=== PATIENT | male | born 1970 | race Caucasian/White ===

== ENCOUNTER 2017-04-20 21:30 | Emergency (ER) | payer OTHER ==
[2017-04-20 21:36] VITALS: BP 157/88; PULSE 86; RESP 20; TEMP 98.2
[2017-04-20] MEDS ORDERED: PROPARACAINE 0.5% OPHTH DROPS 15 ML BTL BOTH EYES STA (21:38)
--- NOTE | 2017-04-20 21:52 | ED ---
General Adult HPI - General Chief complaint: Eye Problems Stated complaint: dirt in eyes Time Seen by Provider: 04/20/17 21:36 Source: patient, RN notes reviewed Mode of arrival: ambulatory Limitations: no limitations - History of Present Illness Initial comments: 46-year-old male presents emergency department with a chief complaint of bilateral eye irritation. Patient states that this started earlier today after he was outside working in the yard. Patient states he had a lot of irritation to eyes with no improvement. Patient states that he just is not feeling much better. Patient denies any changes in vision. Patient denies it feeling of anything in the eye.Patient denies any recent fever, chills, shortness of breath , chest pain, back pain, abdominal pain, nausea vomiting, numbness or tingling, dysuria or hematuria, constipation or diarrhea, headaches or visual changes, or any other current symptoms. - Related Data Home Medications Medication Instructions Recorded Confirmed No Known Home Medications [No 04/20/17 04/20/17 Known Home Medications] Allergies Allergy/AdvReac Type Severity Reaction Status Date / Time No Known Allergies Allergy Verified 04/20/17 21:34 Review of Systems ROS Statement: Those systems with pertinent positive or pertinent negative responses have been documented in the HPI. ROS Other: All systems not noted in ROS Statement are negative. Past Medical History Past Medical History: No Reported History History of Any Multi-Drug Resistant Organisms: None Reported Past Surgical History: No Surgical Hx Reported Past Psychological History: No Psychological Hx Reported Smoking Status: Never smoker Past Alcohol Use History: None Reported Past Drug Use History: None Reported General Exam Limitations: no limitations General appearance: alert, in no apparent distress Head exam: Present: atraumatic, normocephalic, normal inspection Eye exam: Present: normal appearance, PERRL, EOMI. Absent: scleral icterus, conjunctival injection, periorbital swelling Pupils: Present: normal accommodation Expanded Eyelids: Normal Inspection: Bilateral Pupils: Regular, Round: Bilateral Sclera/Conjunctival: Normal Inspection: Bilateral (Sales lamp examination does not show any injury) ENT exam: Present: normal exam, mucous membranes moist Neck exam: Present: normal inspection. Absent: tenderness, meningismus, lymphadenopathy Respiratory exam: Present: normal lung sounds bilaterally. Absent: respiratory distress, wheezes, rales, rhonchi, stridor Cardiovascular Exam: Present: regular rate, normal rhythm, normal heart sounds. Absent: systolic murmur, diastolic murmur, rubs, gallop, clicks Neurological exam: Present: alert, oriented X3 Psychiatric exam: Present: normal affect, normal mood Skin exam: Present: warm, dry, intact, normal color. Absent: rash Course Vital Signs 04/20/17 21:34 Temperature 98.2 F Pulse Rate 86 Respiratory 20 Rate Blood Pressure 157/88 O2 Sat by Pulse 98 Oximetry Medical Decision Making - Medical Decision Making 46 yo male presents to the emergency department with a chief complaint of irritation to bilateral eyes. sales lamp examination show no acute process. patient underwent irrigation with morgans lens. Patient states feeling better. we discussed home care and follow up. all questions have been answered. patient in agreement with plan. patient will be discharged at this time. Disposition Clinical Impression: Irritation of both eyes Disposition: HOME SELF-CARE Condition: Stable Instructions: Eye Wash (Into the eye) Additional Instructions: If symptoms worsen or changed please return to the ER. Follow up with your PCP in 1-2 days for re-eval. Any changes in vision return immediately. Referrals: Estephanie Fry MD [STAFF PHYSICIAN] - 1-2 days Time of Disposition: 22:37
== END 2017-04-20 22:45 | disposition home or self-care (01) ==
LOC: EC 21:30
DX: H57.8 Other specified disorders of eye and adnexa (principal)
CPT/HCPCS: 99283

== ENCOUNTER 2019-10-08 15:11 | Emergency (ER) | payer OTHER ==
[2019-10-08 15:21] VITALS: BP 149/83; PULSE 67; RESP 16; TEMP 99.9
[2019-10-08] MEDS ORDERED: ACETAMINOPHEN TAB 325 MG TAB PO STA (15:51)
--- NOTE | 2019-10-08 16:08 | XR ---
EXAMINATION TYPE: XR chest 2V DATE OF EXAM: 10/08/2019 COMPARISON: NONE HISTORY: Fever and cough TECHNIQUE: Frontal and lateral views of the chest are obtained. FINDINGS: There is no focal air space opacity, pleural effusion, or pneumothorax seen. The cardiac silhouette size is within normal limits. The osseous structures are intact. IMPRESSION: No acute cardiopulmonary process.
--- NOTE | 2019-10-08 16:31 | ED ---
URI HPI - General Chief Complaint: Upper Respiratory Infection Stated Complaint: Flu symptoms Time Seen by Provider: 10/08/19 15:31 Source: patient Mode of arrival: ambulatory Limitations: no limitations - History of Present Illness Initial Comments: 49-year-old female presenting today for chief complaint of cough for sore throat fever or chills body aches. Patient states that he has had cough chills body aches and felt as though he is a fever since yesterday. Patient states he is coming down with the flu. Patient states he did have his influenza vaccine. Patient denies vomiting diarrhea area patient denies chest pain shortness of breath. Denies headache or photophobia. Patient was concerned possibly had pneumonia. Patient states he coughed so hard on his low back hurts. Patient denies any loss of bowel bladder control urinary retention decrease in strength or range of motion of the lower extremities, history of disc herniation, loss of sensation of the LE, IVDU, cancer history. Patient states it was only present after coughing hard. Patient has no other complaints. Upon arrival patient appears well nontoxic with obvious URI symptoms. - Related Data Previous Rx's Medication Instructions Recorded Oseltamivir [Tamiflu] 75 mg PO Q12HR 5 Days #10 cap 10/08/19 Allergies Allergy/AdvReac Type Severity Reaction Status Date / Time No Known Allergies Allergy Verified 10/08/19 15:20 Review of Systems ROS Statement: Those systems with pertinent positive or pertinent negative responses have been documented in the HPI. ROS Other: All systems not noted in ROS Statement are negative. Past Medical History Past Medical History: Hypertension History of Any Multi-Drug Resistant Organisms: None Reported Past Surgical History: No Surgical Hx Reported Past Psychological History: No Psychological Hx Reported Smoking Status: Never smoker Past Alcohol Use History: None Reported Past Drug Use History: None Reported General Exam - General Exam Comments Initial Comments: General: The patient is awake and alert, in no distress, and does not appear acutely ill. Eye: +3 mm pupils are equal, round and reactive to light, extra-ocular movements are intact. No nystagmus. There is normal conjunctiva bilaterally. No signs of icterus. No photophobia Ears, nose, mouth and throat: There are moist mucous membranes and no oral lesions. Oropharynx was not erythematous there is no tonsillar enlargement exudates or lesions. Uvula midline. Tympanic membranes are not erythematous or is no effusions bulging or retraction. No tenderness to palpation of the mastoid. No anterior cervical lymphadenopathy. Rhinorrhea, clear and bilateral nares. No tripoding, no drooling. Neck: The neck is supple, there is no tenderness or JVD. No nuchal rigidity Cardiovascular: There is a regular rate and rhythm. No murmur, rub or gallop is appreciated. Respiratory: Lungs are clear to auscultation, respirations are non-labored, breath sounds are equal. No wheezes, stridor, rales, or rhonchi. No retractions or abdominal breathing. Gastrointestinal: Soft, non-distended, non-tender abdomen without masses or organomegaly noted. There is no rebound or guarding present. Bowel sounds are unremarkable. Musculoskeletal: Normal inspection the cervical thoracic and lumbar spine no midline tenderness to patient of the vertebrae of the back some paravertebral lumbar tenderness noted. Normal ROM, no tenderness. Strength 5/5 of the lower extremities equal and comparison bilaterally. Sensation intact of the lower extremities equal comparison bilaterally. Radial pulses equal bilaterally 2+. Neurological: A&O x 3. CN II-XII intact grossly, There are no obvious motor or sensory deficits. Coordination appears grossly intact. Speech appears normal, no muffling. Skin: Skin is warm and dry and no rashes or lesions are noted. No extremity edema Psychiatric: Cooperative Limitations: no limitations Course Vital Signs 10/08/19 15:18 Temperature 99.9 F H Pulse Rate 67 Respiratory 16 Rate Blood Pressure 149/83 O2 Sat by Pulse 95 Oximetry Medical Decision Making - Medical Decision Making 49-year-old male presenting today for chief complaint of cough congestion flulike symptoms. Patient positive for influenza A. Lung clear, no respiratory distress> CXR clear. Patient also complaining of low back pain has paraspinal tenderness this is most likely from coughing, I feel this is most likely musculoskeletal as does my attending provider who I discussed case with. This time given patient's symptoms are less than 40 hours I feel he may be discharged with antiemetic treatment strict return parameters it and cautious primary care follow-up within 24-40 hours as well as the use of Tamiflu and Tylenol/ibuprofen for fever management. Patient is agreeable to care plan and discharge. Attending providers agreeable care plan and discharge at this time. - Lab Data Lab Results 02/14/20 Range/Units 16:00 Influenza Type A RNA Detected H (Not Detectd) Influenza Type B (PCR) Not Detected (Not Detectd) Disposition Clinical Impression: Influenza A, Cough, Low back pain Disposition: HOME SELF-CARE Condition: Good Additional Instructions: Please use medication as discussed. Please follow-up with family doctor in the next 2 days. Please return to emergency room if the symptoms increase or worsen or for any other concerns. Prescriptions: Oseltamivir [Tamiflu] 75 mg PO Q12HR 5 Days #10 cap Is patient prescribed a controlled substance at d/c from ED?: No Referrals: Jodi Ritchie DO [Primary Care Provider] - 1-2 days Time of Disposition: 16:31
== END 2019-10-08 16:55 | disposition home or self-care (01) ==
LOC: EC 15:11
DX: J10.1 Influenza due to other identified influenza virus with other respiratory manifestations (principal); M54.5 Low back pain; I10 Essential (primary) hypertension
CPT/HCPCS: 71046; 87502; 99283

== ENCOUNTER 2020-03-27 17:48 | Emergency (ER) | payer OTHER ==
[2020-03-27 17:58] VITALS: PULSE 65; TEMP 98.6
[2020-03-27] MEDS ORDERED: ONDANSETRON 4 MG ODT STARTER PACK 2 TAB BTL PO STA (18:31)
[2020-03-27] MEDS ORDERED: ONDANSETRON ODT 4 MG TAB PO STA (18:31)
[2020-03-27] MEDS ORDERED: MECLIZINE 12.5 MG TAB PO STA (18:31)
--- NOTE | 2020-03-27 18:32 | ED ---
Dizziness HPI - General Chief Complaint: Dizziness Stated Complaint: High Blood Pressure Time Seen by Provider: 03/27/20 18:02 Source: patient, RN notes reviewed, old records reviewed Mode of arrival: ambulatory Limitations: no limitations - History of Present Illness Initial Comments: This 49-year-old male DF for evaluation of dizziness lightheadedness room spinning. Has had this issue before prior history of vertigo no prior medications taken. Patient denies drugs or alcohol today. Symptoms began at work he states progressively felt worse patient's main concern is blood pressure may be causing his dizzy spells that he is having. No chest pain shortness breath or headache MD Complaint: dizziness -: hour(s) Timing: gradual onset, intermittent Description: lightheadedness History of Same: Yes History of Trauma: No Severity: mild Improves With: remaining still Worsens With: movement Associated Symptoms: denies other symptoms - Related Data Home Medications Medication Instructions Recorded Confirmed lisinopriL [Prinivil] 5 mg PO DAILY 10/16/19 10/16/19 Previous Rx's Medication Instructions Recorded Amoxicillin/Potassium Clav 1 tab PO Q12HR 7 Days #14 tab 10/16/19 [Augmentin 875-125 Tablet] Meclizine [Antivert] 25 mg PO TID #15 tab 03/27/20 Allergies Allergy/AdvReac Type Severity Reaction Status Date / Time Milk Containing Products AdvReac Confusion Verified 03/27/20 17:57 [Dairy] Review of Systems ROS Statement: Those systems with pertinent positive or pertinent negative responses have been documented in the HPI. ROS Other: All systems not noted in ROS Statement are negative. Past Medical History Past Medical History: Hypertension History of Any Multi-Drug Resistant Organisms: None Reported Past Surgical History: No Surgical Hx Reported Past Psychological History: No Psychological Hx Reported Past Alcohol Use History: None Reported Past Drug Use History: None Reported General Exam Limitations: no limitations General appearance: alert, in no apparent distress Head exam: Present: atraumatic, normocephalic, normal inspection Eye exam: Present: normal appearance, PERRL, EOMI. Absent: scleral icterus, conjunctival injection, periorbital swelling ENT exam: Present: normal exam, mucous membranes moist Neck exam: Present: normal inspection. Absent: tenderness, meningismus, lymphadenopathy Respiratory exam: Present: normal lung sounds bilaterally. Absent: respiratory distress, wheezes, rales, rhonchi, stridor Cardiovascular Exam: Present: regular rate, normal rhythm, normal heart sounds. Absent: systolic murmur, diastolic murmur, rubs, gallop, clicks GI/Abdominal exam: Present: soft, normal bowel sounds. Absent: distended, tenderness, guarding, rebound, rigid Extremities exam: Present: normal inspection, full ROM, normal capillary refill. Absent: tenderness, pedal edema, joint swelling, calf tenderness Back exam: Present: normal inspection Neurological exam: Present: alert, oriented X3, CN II-XII intact Psychiatric exam: Present: normal affect, normal mood Skin exam: Present: warm, dry, intact, normal color. Absent: rash Course Vital Signs 03/27/20 03/27/20 17:55 19:11 Temperature 98.6 F Pulse Rate 65 65 Respiratory 20 14 Rate Blood Pressure 145/83 135/78 O2 Sat by Pulse 100 98 Oximetry - Reevaluation(s) Reevaluation #1: medical record is reviewed patient symptoms siginficantly improved informed patient of results, questions answered and ok for discharge, Medical Decision Making - Medical Decision Making 49 male with symptoms of vertigo. Patient relatively asymptomatic currently. Discharged home without further evaluation, able to ambulate without difficulty or ataxia - Radiology Data Radiology results: report reviewed (CT brain negative for aucte dz), image reviewed Disposition Clinical Impression: Vertigo Disposition: HOME SELF-CARE Condition: Good Instructions (If sedation given, give patient instructions): Vertigo (ED) Prescriptions: Meclizine [Antivert] 25 mg PO TID #15 tab Is patient prescribed a controlled substance at d/c from ED?: No Referrals: Jodi Ritchie DO [Primary Care Provider] - 1-2 days
--- NOTE | 2020-03-27 18:55 | CT ---
EXAMINATION TYPE: CT brain wo con DATE OF EXAM: 03/27/2020 COMPARISON: None HISTORY: Dizziness, headache, elevated BP. CT DLP: 1111.4 mGycm Automated exposure control for dose reduction was used. Ventricles have normal size. There is no mass effect nor midline shift. There is no sign of intracran ial hemorrhage. Calvarium appears normal. Mastoid sinuses appear normal. Skull base is intact. There is no evidence of cerebral edema. IMPRESSION: Normal unenhanced head CT scan.
[2020-03-27 19:13] VITALS: BP 135/78; RESP 14
== END 2020-03-27 19:11 | disposition home or self-care (01) ==
LOC: EC 17:48
DX: R42 Dizziness and giddiness (principal); I10 Essential (primary) hypertension; Z79.899 Other long term (current) drug therapy; Z91.011 Allergy to milk products
CPT/HCPCS: 70450; 99284; S0119

== ENCOUNTER 2023-02-18 16:25 | Emergency (ER) | payer BC, OTHER ==
[2023-02-18 16:31] VITALS: RESP 16
--- NOTE | 2023-02-18 17:37 | ED ---
General Adult HPI - General Source: patient, RN notes reviewed Mode of arrival: ambulatory Limitations: no limitations <Giulia Green - Last Filed: 02/18/23 17:36> <Jaqueline Victoria - Last Filed: 02/18/23 23:49> - General Chief complaint: Headache Stated complaint: Fever,chills,headache Time Seen by Provider: 02/18/23 17:36 - History of Present Illness Initial comments: 52-year-old male with no significant past medical history presents emergency department with a chief complaint of headache, fever, chills. Patient reports also chronic left knee pain. denies any injury or trauma (Giulia Green) Patient is a 52-year-old male presents to the emergency department for upper respiratory symptoms. Patient reports fever, chills, dry cough which started today. He also reports migraine. States he has history and this feels similar. He denies numbness and tingling, weakness. Denies chest pain and shortness of breath. (Jaqueline Victoria) - Related Data Home Medications Medication Instructions Recorded Confirmed lisinopriL [Prinivil] 5 mg PO DAILY 10/16/19 10/16/19 Previous Rx's Medication Instructions Recorded Amoxicillin/Potassium Clav 1 tab PO Q12HR 7 Days #14 tab 10/16/19 [Augmentin 875-125 Tablet] Meclizine [Antivert] 25 mg PO TID #15 tab 03/27/20 Ibuprofen [Motrin] 800 mg PO Q8HR PRN #30 tab 02/18/23 Lidocaine 5% Patch [Lidoderm 5% 1 patch TOPICAL DAILY PRN #7 patch 02/18/23 Patch] Allergies Allergy/AdvReac Type Severity Reaction Status Date / Time Milk Containing Products AdvReac Confusion Verified 03/27/20 17:57 [Dairy] Review of Systems ROS Other: All systems not noted in ROS Statement are negative. <Giulia Green - Last Filed: 02/18/23 17:36> ROS Other: All systems not noted in ROS Statement are negative. <Jaqueline Victoria - Last Filed: 02/18/23 23:49> ROS Statement: Those systems with pertinent positive or pertinent negative responses have been documented in the HPI. Past Medical History Past Medical History: Hypertension History of Any Multi-Drug Resistant Organisms: None Reported Past Surgical History: No Surgical Hx Reported Past Psychological History: No Psychological Hx Reported Past Alcohol Use History: None Reported Past Drug Use History: None Reported <YojanaGiulia abhena - Last Filed: 02/18/23 17:36> General Exam Limitations: no limitations <Giulia Green - Last Filed: 02/18/23 17:36> General appearance: alert, in no apparent distress Head exam: Present: atraumatic, normocephalic, normal inspection Respiratory exam: Present: normal lung sounds bilaterally. Absent: respiratory distress, wheezes, rales, rhonchi, stridor Cardiovascular Exam: Present: regular rate, normal rhythm, normal heart sounds. Absent: systolic murmur, diastolic murmur, rubs, gallop, clicks Neurological exam: Present: alert, oriented X3, CN II-XII intact Expanded Cranial nerves: Facial Sensation: Normal, Facial Palsy with Forehead Movement: Normal, Facial Palsy without Forehead Movement: Normal Cerebellar function: Finger to Nose: Normal, Heel to [place]: Normal Sensory exam: Upper Extremity Light Touch: Normal, Lower Extremity Light Touch: Normal Motor strength exam: RUE: 5, LUE: 5, RLE: 5, LLE: 5 Psychiatric exam: Present: normal affect, normal mood Skin exam: Present: warm, dry, intact, normal color. Absent: rash <EsmeJaqueline - Last Filed: 02/18/23 23:49> - General Exam Comments Initial Comments: Visual Physical Exam Vital signs reviewed General: Well-appearing, nontoxic, no acute distress. Head: Normocephalic, atraumatic Eyes: PERRLA, EOMI ENT: Airway patent Chest: Nonlabored breathing Skin: No visual rash, normal skin tone Neuro: Alert and oriented 3 Musculoskeletal: No gross abnormalities (Giulia Green) Course Vital Signs 02/18/23 02/18/23 16:27 20:30 Temperature 99.9 F H 99.3 F Pulse Rate 72 68 Respiratory 16 16 Rate Blood Pressure 165/87 153/73 O2 Sat by Pulse 98 97 Oximetry Medical Decision Making <EsmeJaqueline - Last Filed: 02/18/23 23:49> - Medical Decision Making Was pt. sent in by a medical professional or institution (, PA, [employer]AD, urgent care, hospital, or group home...) When possible be specific @ -No Did you speak to anyone other than the patient for history (EMS, parent, family, police, friend...)? What history was obtained from this source @ -No Did you review nursing and triage notes (agree or disagree)? Why? @ -I reviewed and agree with nursing and triage notes Were old charts reviewed (outside hosp., previous admission, EMS record, old EKG, old radiological studies, urgent care reports/EKG's, group home records)? Report findings @ -No old charts were reviewed Differential Diagnosis (chest pain, altered mental status, abdominal pain women, abdominal pain men, vaginal bleeding, weakness, fever, dyspnea, syncope, headache, dizziness, GI bleed, back pain, seizure, CVA, palpatations, mental health)? @ -Differential Headache: Migraine, tension, cluster, carbon monoxide, central venous thrombosis, pension karma temporal arteritis, acute closure glaucoma, intercranial hemorrhage, mastoiditis, sinusitis, head injury, this is not meant to be an all-inclusive list. EKG interpreted by me (3pts min.). @ -None X-rays interpreted by me (1pt min.). @ -None done CT interpreted by me (1pt min.). @ -None done U/S interpreted by me (1pt. min.). @ -None done What testing was considered but not performed or refused? (CT, X-rays, U/S, labs)? Why? @ -None What meds were considered but not given or refused? Why? @ -None Did you discuss the management of the patient with other professionals (professionals i.e. , PA, [employer], lab, RT, psych nurse, social services manager, sales audit clerk, teacher, court officer, block and case maker)? Give summary @ -No Was smoking cessation discussed for >3mins.? @ -No Was critical care preformed (if so, how long)? @ -No Were there social determinants of health that impacted care today? How? (Homelessness, low income, unemployed, alcoholism, drug addiction, transportation, low edu. Level, literacy, decrease access to med. care, retirement, rehab)? @ -No Was there de-escalation of care discussed even if they declined (Discuss DNR or withdrawal of care, Hospice)? DNR status @ -No What co-morbidities impacted this encounter? (DM, HTN, Smoking, COPD, CAD, Cancer, CVA, ARF, Chemo, Hep., AIDS, mental health diagnosis, sleep apnea, morbid obesity)? @ -None Was patient admitted / discharged? Hospital course, mention meds given and route, prescriptions, significant lab abnormalities, going to OR and other pertinent info. @ -Patient presenting with upper respiratory symptoms and migraine. No neurological deficit on exam. Vital testing is negative. Symptoms improved after migraine cocktail patient is discharged in stable condition Undiagnosed new problem with uncertain prognosis? @ -No Drug Therapy requiring intensive monitoring for toxicity (Heparin, Nitro, Insulin, Cardizem)? @ -No Were any procedures done? @ -No Diagnosis/symptom? @ -migraine, acute URI Acute, or Chronic, or Acute on Chronic? @ -acute Uncomplicated (without systemic symptoms) or Complicated (systemic symptoms)? @ -uncomplicated Side effects of treatment? @ -No Exacerbation, Progression, or Severe Exacerbation? @ -No Poses a threat to life or bodily function? How? (Chest pain, [place], [place], pneumonia, PE, COPD, DKA, ARF, appy, cholecystitis, CVA, Diverticulitis, Homicidal, Suicidal, threat to staff... and all critical care pts) @ -No Dr. Sarabia is my attending (Jaqueline Victoria) - Lab Data Lab Results 02/18/23 Range/Units 18:06 Influenza Type A (PCR) Not Detected (Not Detectd) Influenza Type B (PCR) Not Detected (Not Detectd) RSV (PCR) Not Detected (Not Detectd) SARS-CoV-2 (PCR) Not Detected (Not Detectd) Disposition <Giulia Green - Last Filed: 02/18/23 17:36> Is patient prescribed a controlled substance at d/c from ED?: No Time of Disposition: 20:25 <Jaqueline Victoria - Last Filed: 02/18/23 23:49> Clinical Impression: Migraine, Acute upper respiratory infection Disposition: HOME SELF-CARE Condition: Good Instructions (If sedation given, give patient instructions): Upper Respiratory Infection (ED) Additional Instructions: Take medication as directed. Please follow-up with your primary care provider in 1-2 days. Return to the emergency department if you experience new, concerning, or worsening symptoms. Prescriptions: Lidocaine 5% Patch [Lidoderm 5% Patch] 1 patch TOPICAL DAILY PRN #7 patch PRN Reason: Pain Ibuprofen [Motrin] 800 mg PO Q8HR PRN #30 tab PRN Reason: Pain Referrals: Jodi Ritchie DO [Primary Care Provider] - 1-2 days
[2023-02-18] MEDS ORDERED: diphenhydrAMINE 50 MG/ML 1 ML VIAL IVP STA (18:19)
[2023-02-18] MEDS ORDERED: KETOROLAC 15 MG/ML 1 ML VIAL IVP STA (18:19)
[2023-02-18] MEDS ORDERED: DEXAMETHASONE SOD PHOSPHATE 10 MG/ML 1 ML VIAL IVP STA (18:19)
[2023-02-18] MEDS ORDERED: SODIUM CHLORIDE 0.9% 1,000 ML IV STA (18:19)
[2023-02-18] MEDS ORDERED: ONDANSETRON 4 MG/2 ML VIAL IVP STA (18:19)
[2023-02-18] MEDS ORDERED: LIDOCAINE 5% PATCH TOPICAL STA (18:20)
[2023-02-18 20:32] VITALS: BP 153/73; PULSE 68; TEMP 99.3
== END 2023-02-18 20:34 | disposition home or self-care (01) ==
LOC: EC 16:25
DX: G43.909 Migraine, unspecified, not intractable, without status migrainosus (principal); J06.9 Acute upper respiratory infection, unspecified; I10 Essential (primary) hypertension; Z79.899 Other long term (current) drug therapy; Z91.011 Allergy to milk products; Z20.822 Contact with and (suspected) exposure to COVID-19
CPT/HCPCS: 87636; 99284; 96374; 96375 ×3; 96361; J1200; J1100; J2405; J1885

== ENCOUNTER 2023-11-05 14:08 | Emergency (ER) | payer BC ==
--- NOTE | 2023-11-05 14:59 | ED ---
General Adult HPI - General Chief complaint: ENT Stated complaint: FEVER,sore throat Time Seen by Provider: 11/05/23 14:14 Source: patient, RN notes reviewed Mode of arrival: ambulatory Limitations: no limitations - History of Present Illness Initial comments: 53-year-old male presents to the emergency department for chief complaint of sore throat, fever. He states that symptoms started yesterday. He was at work when he developed chills. He states that he noticed sore throat after this and continues to have sore throat today. He notes that he had fever earlier today as well. He admits to taking Tylenol for his fever. He denies cough. Admits to some sinus congestion. - Related Data Home Medications Medication Instructions Recorded Confirmed lisinopriL [Prinivil] 5 mg PO DAILY 10/16/19 10/16/19 Previous Rx's Medication Instructions Recorded Amoxicillin/Potassium Clav 1 tab PO Q12HR 7 Days #14 tab 10/16/19 [Augmentin 875-125 Tablet] Meclizine [Antivert] 25 mg PO TID #15 tab 03/27/20 Ibuprofen [Motrin] 800 mg PO Q8HR PRN #30 tab 02/18/23 Lidocaine 5% Patch [Lidoderm 5% 1 patch TOPICAL DAILY PRN #7 patch 02/18/23 Patch] Allergies Allergy/AdvReac Type Severity Reaction Status Date / Time Milk Containing Products AdvReac Confusion Verified 03/27/20 17:57 (Dairy) [Dairy] Review of Systems ROS Statement: Those systems with pertinent positive or pertinent negative responses have been documented in the HPI. ROS Other: All systems not noted in ROS Statement are negative. Past Medical History Past Medical History: Hypertension History of Any Multi-Drug Resistant Organisms: None Reported Past Surgical History: No Surgical Hx Reported Past Psychological History: No Psychological Hx Reported Past Alcohol Use History: None Reported Past Drug Use History: None Reported General Exam Limitations: no limitations General appearance: alert, in no apparent distress Head exam: Present: atraumatic, normocephalic, normal inspection Eye exam: Present: normal appearance, PERRL, EOMI. Absent: scleral icterus, conjunctival injection, periorbital swelling ENT exam: Present: mucous membranes moist. Absent: normal oropharynx (Erythematous oropharynx without exudate) Neck exam: Present: normal inspection. Absent: tenderness, meningismus, lymphadenopathy Respiratory exam: Present: normal lung sounds bilaterally. Absent: respiratory distress, wheezes, rales, rhonchi, stridor Cardiovascular Exam: Present: regular rate, normal rhythm, normal heart sounds. Absent: systolic murmur, diastolic murmur, rubs, gallop, clicks GI/Abdominal exam: Present: soft. Absent: distended, tenderness, guarding, rebound, rigid Extremities exam: Present: normal inspection, full ROM, normal capillary refill. Absent: tenderness, pedal edema, joint swelling, calf tenderness Back exam: Present: normal inspection Neurological exam: Present: alert, oriented X3 Psychiatric exam: Present: normal affect, normal mood Skin exam: Present: warm, dry, intact, normal color. Absent: rash Course Vital Signs 11/05/23 11/05/23 11/05/23 14:11 14:42 16:02 Temperature 98.3 F 98 F Pulse Rate 61 70 Respiratory 16 18 16 Rate Blood Pressure 146/83 135/79 O2 Sat by Pulse 98 96 Oximetry Medical Decision Making - Medical Decision Making Was pt. sent in by a medical professional or institution (, PA, CIVIL ENGINEERING MANAGER, urgent care, hospital, or snf...) When possible be specific @ -No Did you speak to anyone other than the patient for history (EMS, parent, family, police, friend...)? What history was obtained from this source @ -No Did you review nursing and triage notes (agree or disagree)? Why? @ -I reviewed and agree with nursing and triage notes Were old charts reviewed (outside hosp., previous admission, EMS record, old EKG, old radiological studies, urgent care reports/EKG's, snf records)? Report findings @ -No old charts were reviewed Differential Diagnosis (chest pain, altered mental status, abdominal pain women, abdominal pain men, vaginal bleeding, weakness, fever, dyspnea, syncope, headache, dizziness, GI bleed, back pain, seizure, CVA, palpatations, mental health, musculoskeletal)? @ -Differential Fever: Pneumonia, viral URI, endocarditis, myocarditis, pericarditis, otitis, sinusitis, peritonsillar Abscess, retropharyngeal Abscess, epiglottitis, peritonitis, appendicitis, [place] cystitis, diverticulitis, hepatitis, colitis, UTI, PID, TOA, pyelonephritis, prostatitis, epididymitis, meningitis, encephalitis, pulmonary embolism, CVA, thyroid storm, pancreatitis, adrenal crisis, cavernous sinus thrombosis, this is not meant to be an all-inclusive list. EKG interpreted by me (3pts min.). @ -None X-rays interpreted by me (1pt min.). @ -None done CT interpreted by me (1pt min.). @ -None done U/S interpreted by me (1pt. min.). @ -None done What testing was considered but not performed or refused? (CT, X-rays, U/S, labs)? Why? @ -None What meds were considered but not given or refused? Why? @ -None Did you discuss the management of the patient with other professionals (professionals i.e. , PA, CIVIL ENGINEERING MANAGER, lab, RT, psych nurse, elementary school social worker, settlement agent, teacher, community service patrol officer, immigration case worker)? Give summary @ -No Was smoking cessation discussed for >3mins.? @ -No Was critical care preformed (if so, how long)? @ -No Were there social determinants of health that impacted care today? How? (Homelessness, low income, unemployed, alcoholism, drug addiction, transportation, low edu. Level, literacy, decrease access to med. care, senior living, rehab)? @ -No Was there de-escalation of care discussed even if they declined (Discuss DNR or withdrawal of care, Hospice)? DNR status @ -No What co-morbidities impacted this encounter? (DM, HTN, Smoking, COPD, CAD, Cancer, CVA, ARF, Chemo, Hep., AIDS, mental health diagnosis, sleep apnea, morbid obesity)? @ -None Was patient admitted / discharged? Hospital course, mention meds given and route, prescriptions, significant lab abnormalities, going to OR and other pertinent info. @ -Discharge. Patient presented to the emergency department for evaluation of fever, sore throat, muscle aches x 1 day. Patient tested for COVID, influenza, RSV, strep pharyngitis which were negative. Patient afebrile in the emergency department. Discussed that this is likely a viral pharyngitis. Discussed symptomatic treatment with Tylenol, Motrin, salt water gargles. Patient understanding agreeable plan. Patient stable at time of discharge. Case discussed with Dr. Ordoñez Undiagnosed new problem with uncertain prognosis? @ -No Drug Therapy requiring intensive monitoring for toxicity (Heparin, Nitro, Insulin, Cardizem)? @ -No Were any procedures done? @ -No Diagnosis/symptom? @ -Viral pharyngitis Acute, or Chronic, or Acute on Chronic? @ -Acute Uncomplicated (without systemic symptoms) or Complicated (systemic symptoms)? @ -Uncomplicated Side effects of treatment? @ -No Exacerbation, Progression, or Severe Exacerbation? @ -No Poses a threat to life or bodily function? How? (Chest pain, [place], [place], pneumonia, PE, COPD, DKA, ARF, appy, cholecystitis, CVA, Diverticulitis, Homicidal, Suicidal, threat to staff... and all critical care pts) @ -No - Lab Data Lab Results 11/05/23 11/05/23 Range/Units 14:37 14:37 Influenza Type A (PCR) Not Detected (Not Detectd) Influenza Type B (PCR) Not Detected (Not Detectd) RSV (PCR) Not Detected (Not Detectd) SARS-CoV-2 (PCR) Not Detected (Not Detectd) Group A Strep (PCR) NOT DETECTED (Not Detectd) Disposition Clinical Impression: Acute viral pharyngitis Disposition: HOME SELF-CARE Condition: Stable Instructions (If sedation given, give patient instructions): Pharyngitis (ED) Additional Instructions: Please follow up with your primary care provider. Return to the emergency department for new or worsening symptoms. Is patient prescribed a controlled substance at d/c from ED?: No Referrals: Geeta Atkins DO [Primary Care Provider] - 1-2 days
[2023-11-05 16:23] VITALS: BP 135/79; PULSE 70; RESP 16; TEMP 98
== END 2023-11-05 16:36 | disposition home or self-care (01) ==
LOC: EC 14:08
DX: J02.9 Acute pharyngitis, unspecified (principal); Z91.011 Allergy to milk products
CPT/HCPCS: 87636; 87651; 99283

== ENCOUNTER 2024-05-12 17:55 | Emergency (ER) | payer BC ==
--- NOTE | 2024-05-12 18:41 | ED ---
Fever HPI - General Source: patient, RN notes reviewed Mode of arrival: ambulatory Limitations: no limitations <Nuha Lozano - Last Filed: 05/12/24 18:40> - General Source: patient, old records reviewed Mode of arrival: ambulatory Limitations: no limitations - History of Present Illness MD Complaint: fever, malaise -: days(s) Temperature Source: subjective Context: sick contacts, multiple patients with similar symptoms Associated Symptoms: chills, rigors, cough, chest pain Treatments Prior to Arrival: none <Brodie Ordoñez - Last Filed: 05/24/24 16:01> - General Chief Complaint: Fever Stated Complaint: fever,lower back pain/congestion Time Seen by Provider: 05/12/24 18:40 - History of Present Illness Initial Comments: Quick note: 54-year-old male presented to ER with a chief complaint of cough and fever. Patient states today he started to experience chills, dry throat, coughing up phlegm and lower back pain. Denies any chest pain or shortness of breath. (Nuha Lozano) This is a 54-year-old male to ER for evaluation of cough and fever with possibility of shortness of breath concern for coronavirus (Brodie Ordoñez) - Related Data Home Medications Medication Instructions Recorded Confirmed lisinopriL [Prinivil] 5 mg PO DAILY 10/16/19 10/16/19 Previous Rx's Medication Instructions Recorded Amoxicillin/Potassium Clav 1 tab PO Q12HR 7 Days #14 tab 10/16/19 [Augmentin 875-125 Tablet] Meclizine [Antivert] 25 mg PO TID #15 tab 03/27/20 Ibuprofen [Motrin] 800 mg PO Q8HR PRN #30 tab 02/18/23 Lidocaine 5% Patch [Lidoderm 5% 1 patch TOPICAL DAILY PRN #7 patch 02/18/23 Patch] Allergies Allergy/AdvReac Type Severity Reaction Status Date / Time Milk Containing Products AdvReac Confusion Verified 05/12/24 17:59 (Dairy) [Dairy] Review of Systems ROS Other: All systems not noted in ROS Statement are negative. <Nuha Lozano - Last Filed: 05/12/24 18:40> ROS Other: All systems not noted in ROS Statement are negative. <Brodie Ordoñez - Last Filed: 05/24/24 16:01> ROS Statement: Those systems with pertinent positive or pertinent negative responses have been documented in the HPI. Past Medical History Past Medical History: Hypertension History of Any Multi-Drug Resistant Organisms: None Reported Past Surgical History: No Surgical Hx Reported Past Psychological History: No Psychological Hx Reported Smoking Status: Former smoker Past Alcohol Use History: None Reported Past Drug Use History: None Reported <Nuha Lozano - Last Filed: 05/12/24 18:40> General Exam Limitations: no limitations <Nuha Lozano - Last Filed: 05/12/24 18:40> General appearance: alert, in no apparent distress, anxious Head exam: Present: atraumatic, normocephalic, normal inspection Eye exam: Present: normal appearance, PERRL, EOMI. Absent: scleral icterus, conjunctival injection, periorbital swelling ENT exam: Present: normal exam, mucous membranes moist Neck exam: Present: normal inspection. Absent: tenderness, meningismus, lymphadenopathy Respiratory exam: Present: normal lung sounds bilaterally. Absent: respiratory distress, wheezes, rales, rhonchi, stridor Cardiovascular Exam: Present: regular rate, normal rhythm, normal heart sounds. Absent: systolic murmur, diastolic murmur, rubs, gallop, clicks GI/Abdominal exam: Present: soft, normal bowel sounds. Absent: distended, tenderness, guarding, rebound, rigid Extremities exam: Present: normal inspection, full ROM, normal capillary refill. Absent: tenderness, pedal edema, joint swelling, calf tenderness Back exam: Present: normal inspection Neurological exam: Present: alert, oriented X3, CN II-XII intact Psychiatric exam: Present: normal affect, normal mood Skin exam: Present: warm, dry, intact, normal color. Absent: rash <Brodie Ordoñez - Last Filed: 05/24/24 16:01> - General Exam Comments Initial Comments: Visual Physical Exam Vital signs reviewed General: Well-appearing, nontoxic, no acute distress. Head: Normocephalic, atraumatic Eyes: PERRLA, EOMI ENT: Airway patent Chest: Nonlabored breathing Skin: No visual rash, normal skin tone Neuro: Alert and oriented 3 Musculoskeletal: No gross abnormalities (Nuha Lozano) Course <Brodie Ordoñez - Last Filed: 05/24/24 16:01> Vital Signs 05/12/24 05/12/24 17:57 20:30 Temperature 102.2 F H 99.3 F Pulse Rate 73 58 L Respiratory 16 18 Rate Blood Pressure 136/82 131/67 O2 Sat by Pulse 97 96 Oximetry - Reevaluation(s) Reevaluation #1: Medical records reviewed (Brodie Ordoñez) Reevaluation #2: Patient symptoms improved (Brodie Ordoñez) Reevaluation #3: Patient informed of results and questions answered (Brodie Ordoñez) Reevaluation #4: Was pt. sent in by a medical professional or institution (, ZOFIA, TOBACCO WAREHOUSE AGENT, urgent care, hospital, or care home...) When possible be specific @ -no Did you speak to anyone other than the patient for history (EMS, parent, family, police, friend...)? What history was obtained from this source @ -no Did you review nursing and triage notes (agree or disagree)? Why? @ -agree Are old charts reviewed (outside hosp., previous admission, EMS record, old EKG, old radiological studies, urgent care reports/EKG's, care home records)? Report findings @ -yes Differential Diagnosis (chest pain, altered mental status, abdominal pain women, abdominal pain men, vaginal bleeding, weakness, fever, dyspnea, syncope, headache, dizziness, GI bleed, back pain, seizure, CVA, palpatations, mental health, musculoskeletal)? @ -prior EKG interpreted by me (3pts min.). @ -yes X-rays interpreted by me (1pt min.). @ -yes negative for acute disease CT interpreted by me (1pt min.). @ -no U/S interpreted by me (1pt. min.). @ -no What testing was considered but not performed or refused? (CT, X-rays, U/S, labs)? Why? @ -none What meds were considered but not given or refused? Why? @ -none Did you discuss the management of the patient with other professionals (professionals i.e. ZOFIA Villafana, TOBACCO WAREHOUSE AGENT, lab, RT, psych nurse, social services counselor, correspondence transcriber, teacher, enforcement officer, adult protective caseworker)? Give summary @ -no Was smoking cessation discussed for >3mins.? @ -no Was critical care preformed (if so, how long)? @ -no Were there social determinants of health that impacted care today? How? (Homelessness, low income, unemployed, alcoholism, drug addiction, transportation, low edu. Level, literacy, decrease access to med. care, fpc, rehab)? @ -none Was there de-escalation of care discussed even if they declined (Discuss DNR or withdrawal of care, Hospice)? DNR status @ -no What co-morbidities impacted this encounter? (DM, HTN, Smoking, COPD, CAD, Cancer, CVA, ARF, Chemo, Hep., AIDS, mental health diagnosis, sleep apnea, morbid obesity)? @ -none Was patient admitted / discharged? Hospital course, mention meds given and route, prescriptions, significant lab abnormalities, going to OR and other pertinent info. @ - 54 male to ER for evaluation of positive fever with coronavirus here in the ER. No significant stress and patient can be discharged home Discharge Undiagnosed new problem with uncertain prognosis? @ -no Drug Therapy requiring intensive monitoring for toxicity (Heparin, Nitro, Insulin, Cardizem)? @ -no Were any procedures done? @ -no Diagnosis/symptom? @ -Fever and coronavirus Acute, or Chronic, or Acute on Chronic? @ -Acute Uncomplicated (without systemic symptoms) or Complicated (systemic symptoms)? @ -Complicated Side effects of treatment? @ -no Exacerbation, Progression, or Severe Exacerbation? @ -exacerbation Poses a threat to life or bodily function? How? (Chest pain, [place], [place], pneumonia, PE, COPD, DKA, ARF, appy, cholecystitis, CVA, Diverticulitis, Homicidal, Suicidal, threat to staff... and all critical care pts) @ -yes (Brodie Ordoñez) Reevaluation #5: Differential Fever: Pneumonia, viral URI, endocarditis, myocarditis, pericarditis, otitis, sinusitis, peritonsillar Abscess, retropharyngeal Abscess, epiglottitis, peritonitis, appendicitis, [place] cystitis, diverticulitis, hepatitis, colitis, UTI, PID, TOA, pyelonephritis, prostatitis, epididymitis, meningitis, encephalitis, pulmonary embolism, CVA, thyroid storm, pancreatitis, adrenal crisis, cavernous sinus thrombosis, this is not meant to be an all-inclusive list. (Brodie Ordoñez) Medical Decision Making <Nuha Lozano - Last Filed: 05/12/24 18:40> - Radiology Data Radiology results: report reviewed (Chest x-ray is negative for acute disease), image reviewed <Brodie Ordoñez - Last Filed: 05/24/24 16:01> - Medical Decision Making I performed the quick note portion of this chart. Electronically signed by Nuha Lozano PA-C (Nuha Lozano) 54 male to ER for evaluation of positive fever with coronavirus here in the ER. No significant stress and patient can be discharged home (Brodie Ordoñez) - Lab Data Lab Results 05/12/24 Range/Units 18:45 Influenza Type A (PCR) Not Detected (Not Detectd) Influenza Type B (PCR) Not Detected (Not Detectd) RSV (PCR) Not Detected (Not Detectd) SARS-CoV-2 (PCR) Detected A (Not Detectd) Disposition <Nuha Lozano - Last Filed: 05/12/24 18:40> Is patient prescribed a controlled substance at d/c from ED?: No Time of Disposition: 19:30 <Brodie Ordoñez - Last Filed: 05/24/24 16:01> Clinical Impression: Fever, Viral infection, Coronavirus infection Disposition: HOME SELF-CARE Condition: Good Instructions (If sedation given, give patient instructions): Coronavirus Disease 2019 (COVID-19), Fever in Adults (ED) Referrals: Geeta Atkins DO [Primary Care Provider] - 1-2 days
[2024-05-12] MEDS: ACETAMINOPHEN TAB 500 MG TAB PO STA (19:18)
[2024-05-12] MEDS: IBUPROFEN 800 MG TAB PO STA (19:18)
--- NOTE | 2024-05-12 19:43 | XR ---
EXAMINATION TYPE: XR chest 2V DATE OF EXAM: 05/12/2024 7:27 PM CLINICAL INDICATION:Male, 54 years old with history of fever; [facility] COMPARISON: Chest radiographs from 10/08/2019 TECHNIQUE: XR chest 2V Frontal and lateral views of the chest. FINDINGS: Lungs/Pleura: Subsegmental atelectasis is present in the lung bases. No pleural effusion or pneumotho rax. Pulmonary vascularity: Unremarkable. Heart/mediastinum: Cardiomediastinal silhouette is unremarkable. Musculoskeletal: No acute osseous pathology. IMPRESSION: No acute cardiopulmonary disease/process. [facility], , 05/12/2024 7:40 PM
[2024-05-12] MEDS: dexAMETHasone 2 MG TAB PO STA (20:22)
[2024-05-12 20:38] VITALS: BP 131/67; PULSE 58; RESP 18; TEMP 99.3
== END 2024-05-12 20:30 | disposition home or self-care (01) ==
LOC: EC 17:55
CPT/HCPCS: 71046; 87636; 99283

== ENCOUNTER 2024-06-13 14:20 | Emergency (ER) | payer BC ==
--- NOTE | 2024-06-13 15:04 | ED ---
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 Patient endorses localized numbness and burning to left hand but otherwise denies any other injuries or striking his head. Patient is unsure if he requires sutures for laceration to the palm. States he is unsure of last tetanus vaccination. Patient denies associated lightheadedness, dizziness/vertigo, visual changes, chest pain, dyspnea, N/V prior to or after fall. (Elan Morales) 54 mm since emergency room chief complaint of a left hand laceration. States that he was getting out his mobile from the garage when a piece of the overcoming metal sliced his left hand. He is unaware when his last tetanus vaccination was. Denies paresthesias or loss of range of motion. (Kenyetta López) - Related Data Home Medications Medication Instructions Recorded Confirmed lisinopriL [Prinivil] 5 mg PO DAILY 10/16/19 10/16/19 Previous Rx's Medication Instructions Recorded Amoxicillin/Potassium Clav 1 tab PO Q12HR 7 Days #14 tab 10/16/19 [Augmentin 875-125 Tablet] Meclizine [Antivert] 25 mg PO TID #15 tab 03/27/20 Ibuprofen [Motrin] 800 mg PO Q8HR PRN #30 tab 02/18/23 Lidocaine 5% Patch [Lidoderm 5% 1 patch TOPICAL DAILY PRN #7 patch 02/18/23 Patch] Allergies Allergy/AdvReac Type Severity Reaction Status Date / Time Milk Containing Products AdvReac Confusion Verified 06/13/24 15:53 (Dairy) [Dairy] Review of Systems ROS Other: All systems not noted in ROS Statement are negative. <Elan Morales - Last Filed: 06/13/24 15:01> ROS Other: All systems not noted in ROS Statement are negative. <Kenyetta López - Last Filed: 06/13/24 17:03> ROS Statement: Those systems with pertinent positive or pertinent negative responses have been documented in the HPI. Past Medical History Past Medical History: Hypertension History of Any Multi-Drug Resistant Organisms: None Reported Past Surgical History: No Surgical Hx Reported Past Psychological History: No Psychological Hx Reported Smoking Status: Former smoker Past Alcohol Use History: None Reported Past Drug Use History: None Reported <AndrewElan wynn - Last Filed: 06/13/24 15:01> General Exam <Elan Morales - Last Filed: 06/13/24 15:01> General appearance: alert, in no apparent distress Eye exam: Present: normal appearance, PERRL, EOMI. Absent: scleral icterus, conjunctival injection, periorbital swelling ENT exam: Present: normal exam, mucous membranes moist Neck exam: Present: normal inspection. Absent: tenderness, meningismus, lymphadenopathy Respiratory exam: Present: normal lung sounds bilaterally. Absent: respiratory distress, wheezes, rales, rhonchi, stridor Cardiovascular Exam: Present: regular rate, normal rhythm, normal heart sounds. Absent: systolic murmur, diastolic murmur, rubs, gallop, clicks GI/Abdominal exam: Present: soft, normal bowel sounds. Absent: distended, tenderness, guarding, rebound, rigid Left Hand Wrist exam: Present: laceration (Mid palmar aspect 2-1/2 cm laceration no active bleeding, neurovascularly intact) Neuro motor exam: Present: wrist extension intact, thumb opposition intact, thumb IP flexion intact, thumb adduction intact Vascular: Present: normal capillary refill, radial pulse (2+). Absent: vascular compromise Back exam: Present: normal inspection Neurological exam: Present: alert, oriented X3, CN II-XII intact Skin exam: Present: warm, dry, intact, normal color. Absent: rash <StieleLuz mayaoe - Last Filed: 06/13/24 17:03> - General Exam Comments Initial Comments: Visual Physical Exam Vital signs reviewed General: Well-appearing, nontoxic, no acute distress. Head: Normocephalic, atraumatic Eyes: PERRLA, EOMI ENT: Airway patent Chest: Nonlabored breathing Skin: No visual rash, normal skin tone. 2.5 cm vertical laceration noted on middle of left palm with dried blood. No obvious or active bleeding Neuro: Alert and oriented 3 Musculoskeletal: No gross abnormalities (Elan Morales) Course Vital Signs 06/13/24 15:53 Temperature 98.6 F Pulse Rate 51 L Respiratory 16 Rate Blood Pressure 169/79 O2 Sat by Pulse 100 Oximetry Medical Decision Making <Elan Morales - Last Filed: 06/13/24 15:01> <Kenyetta López - Last Filed: 06/13/24 17:03> - Medical Decision Making I completed the quick note portion of this chart signed JADE Reyez (Elan Morales) Was pt. sent in by a medical professional or institution ([facility], [facility] [employer], urgent care, hospital, or [facility]...) When possible be specific @ -No Did you speak to anyone other than the patient for history (EMS, parent, family, police, friend...)? What history was obtained from this source @ -No Did you review nursing and triage notes (agree or disagree)? Why? @ -I reviewed and agree with nursing and triage notes Were old charts reviewed (outside hosp., previous admission, EMS record, old EKG, old radiological studies, urgent care reports/EKG's, [facility] records)? Report findings @ -No old charts were reviewed Differential Diagnosis (chest pain, altered mental status, abdominal pain women, abdominal pain men, vaginal bleeding, weakness, fever, dyspnea, syncope, headache, dizziness, GI bleed, back pain, seizure, CVA, palpatations, mental health, musculoskeletal)? @ -Differential Musculoskeletal Muscular strain, contusion, ligament sprain, fracture, arthritis, septic arthritis, bursitis, cellulitis, muscle spasm, nerve compression, DVT, arterial occlusion, herpes zoster, electrolyte abnormality, tumor.... This is not meant to be in all inclusive list EKG interpreted by me (3pts min.). @ -none X-rays interpreted by me (1pt min.). @ -X-ray of the left hand reveals no acute osseous pathology. CT interpreted by me (1pt min.). @ -None done U/S interpreted by me (1pt. min.). @ -None done What testing was considered but not performed or refused? (CT, X-rays, U/S, labs)? Why? @ -None What meds were considered but not given or refused? Why? @ -None Did you discuss the management of the patient with other professionals (professionals i.e. [employer]ano, PA, [employer] [employer], lab, RT, psych nurse, social professionals, machine cell tuber, teacher, armed custom protection officer, case manager specialist)? Give summary @ -No Was smoking cessation discussed for >3mins.? @ -No Was critical care preformed (if so, how long)? @ -No Were there social determinants of health that impacted care today? How? (Homelessness, low income, unemployed, alcoholism, drug addiction, transportation, low edu. Level, literacy, decrease access to med. care, care home, rehab)? @ -No Was there de-escalation of care discussed even if they declined (Discuss DNR or withdrawal of care, Hospice)? DNR status @ -No What co-morbidities impacted this encounter? (DM, HTN, Smoking, COPD, CAD, Cancer, CVA, ARF, Chemo, Hep., AIDS, mental health diagnosis, sleep apnea, morbid obesity)? @ -None Was patient admitted / discharged? Hospital course, mention meds given and route, prescriptions, significant lab abnormalities, going to OR and other pertinent info. @ -Discharge. 50 female with a laceration to the left thumb. Patient was evaluated emergency department he was a quick note and x-ray was ordered. On evaluation patient is resting complaints of acute distress. Vitals are stable. Send to have approximately 3 and half centimeter laceration to the left palm. He is neurovascular tact. Radial pulse 2+. Strong capillary refill. Laceration does not require stitches. He is provided with tetanus vaccination and area was cleansed with sterile water and bandage applied over top. Discussed with Dr. Panda Undiagnosed new problem with uncertain prognosis? @ -No Drug Therapy requiring intensive monitoring for toxicity (Heparin, Nitro, Insulin, Cardizem)? @ -No Were any procedures done? @ -No Diagnosis/symptom? @ -laceration Acute, or Chronic, or Acute on Chronic? @ -Acute Uncomplicated (without systemic symptoms) or Complicated (systemic symptoms)? @ -uncomplicated Side effects of treatment? @ -No Exacerbation, Progression, or Severe Exacerbation? @ -No Poses a threat to life or bodily function? How? (Chest pain, [place], [place], pneumonia, PE, COPD, DKA, ARF, appy, cholecystitis, CVA, Diverticulitis, Homicidal, Suicidal, threat to staff... and all critical care pts) @ -No (Kenyetta López) Disposition <Elan Morales - Last Filed: 06/13/24 15:01> Is patient prescribed a controlled substance at d/c from ED?: No Time of Disposition: 16:17 <Kenyetta López - Last Filed: 06/13/24 17:03> Clinical Impression: Laceration Disposition: HOME SELF-CARE Condition: Good Instructions (If sedation given, give patient instructions): Laceration (ED) Additional Instructions: Please return to the Emergency Department if symptoms worsen or any other concerns. Continue to keep area clean and dry Referrals: Geeta Atkins DO [Primary Care Provider] - 1-2 days
[2024-06-13 15:56] VITALS: BP 169/79; PULSE 51; RESP 16; TEMP 98.6
[2024-06-13] MEDS: DIPH,PERTUS(ACELL)TETVAC-LF 0.5 ML VIAL IM ONE (15:57)
--- NOTE | 2024-06-13 16:21 | XR ---
EXAMINATION TYPE: XR hand complete LT DATE OF EXAM: 06/13/2024 3:48 PM CLINICAL INDICATION: Male, 54 years old with history of Left palm, fall onto metal; [facility] COMPARISON: None TECHNIQUE: XR hand complete LT Frontal, lateral and oblique views were obtained. FINDINGS: Normal alignment of the visualized joints. No acute osseous pathology is identified. No e vidence of soft tissue swelling. Mild degeneration changes with joint space narrowing and osteophyte formation. IMPRESSION: 1. No acute osseous pathology. 2. 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 [facility], , 06/13/2024 4:18 PM
== END 2024-06-13 16:57 | disposition home or self-care (01) ==
LOC: EC 14:20
CPT/HCPCS: 90471; 90715; 99283

== ENCOUNTER 2024-11-20 21:45 | Observation (INO) | payer BC ==
[2024-11-20] MEDS: ASPIRIN 81 MG PO STA (22:07)
[2024-11-20] MEDS: SODIUM CHLORIDE 0.9% 1,000 ML IV STA (22:08)
[2024-11-20] MEDS: NITROGLYCERIN SL TABS 0.4 MG TAB SUBLINGUAL STA (22:08)
[2024-11-20 22:31] LABS: Basophils # (A) 0.1 k/uL (0-0.2); Basophils % (A) 1 %; Eosinophils # (A) 0.5 k/uL (0-0.7); Eosinophils % (A) 4 %; HCT 44.8 % (39.0-53.0); HGB 15.3 gm/dL (13.0-17.5); Lymphocytes # (A) 3.7 k/uL (1.0-4.8); Lymphocytes % (A) 34 %; MCH 29.6 pg (25.0-35.0); MCHC 34.2 g/dL (31.0-37.0); MCV 86.6 fL (80.0-100.0); Mean Platelet Volume 8.8; Monocytes # (A) 0.6 k/uL (0-1.0); Monocytes % (A) 5 %; Neutrophils # (A) 5.8 k/uL (1.3-7.7); Neutrophils % (A) 54 %; Platelet Count 254 k/uL (150-450); RBC 5.18 m/uL (4.30-5.90); RDW 12.8 % (11.5-15.5); WBC 10.8 k/uL (3.8-10.6)
[2024-11-20 22:45] LABS: ALT 28 U/L (4-49); AST 29 U/L (17-59); African American GFR (CKD) 85 (>60 ml/min/1.73 sqM); Albumin 4.2 g/dL (3.5-5.0); Alkaline Phosphatase 65 U/L (38-126); Anion Gap 10 mmol/L; Blood Urea Nitrogen 15 mg/dL (9-20); Calcium 9.6 mg/dL (8.4-10.2); Carbon Dioxide 25 mmol/L (22-30); Chloride 105 mmol/L (98-107); Glucose 119 mg/dL (74-99); Lipase 106 U/L (23-300); Magnesium 1.9 mg/dL (1.6-2.3); Non-African American GFR(CKD) 74 (>60 ml/min/1.73 sqM); Potassium 3.7 mmol/L (3.5-5.1); Sodium 140 mmol/L (137-145); Total Bilirubin 0.7 mg/dL (0.2-1.3); Total Protein 7.2 g/dL (6.3-8.2)
[2024-11-20 22:47] LABS: Partial Thromboplastin Time 24.5 sec (22.0-30.0); Prothrombin Time 10.7 sec (10.0-12.5)
[2024-11-20 22:52] LABS: NT-Pro-B-Type Natriuretic Pept 59 pg/mL
--- NOTE | 2024-11-20 23:01 | ED ---
General Adult HPI - General Chief complaint: Chest Pain Stated complaint: chest pain Time Seen by Provider: 11/20/24 21:55 Source: patient, RN notes reviewed, old records reviewed Mode of arrival: ambulatory Limitations: no limitations - History of Present Illness Initial comments: Patient is a 54-year-old male who presents emergency department complaining of pain. Has a history of this recurrent chest pain that occurs on a weekly to monthly basis. Has a history of hypertension, GERD as well as multiple multiple bubbled replacements. 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 States he does not feel improved at this time. States that when he was walking his dog around 3 PM, he began to have some chest discomfort that he described as heart palpitations and then had a headache that resolved after a few minutes. Now is having some mild chest tightness. States earlier it was a 7 or 8 out of 10 and now it is approximately a 4 or 5 out of 10. Has improved and is resting comfortably but wanted to be evaluated. No history of cardiac stents. Recently had a stress test in . Presents for further evaluation at this time.Denies any radiation of the pain. Denies any nausea or vomiting. Denies any diaphoresis. - Related Data Home Medications Medication Instructions Recorded Confirmed lisinopriL [Prinivil] 5 mg PO DAILY 10/16/19 10/16/19 Previous Rx's Medication Instructions Recorded Amoxicillin/Potassium Clav 1 tab PO Q12HR 7 Days #14 tab 10/16/19 [Augmentin 875-125 Tablet] Meclizine [Antivert] 25 mg PO TID #15 tab 03/27/20 Ibuprofen [Motrin] 800 mg PO Q8HR PRN #30 tab 02/18/23 Lidocaine 5% Patch [Lidoderm 5% 1 patch TOPICAL DAILY PRN #7 patch 02/18/23 Patch] Allergies Allergy/AdvReac Type Severity Reaction Status Date / Time Milk Containing Products AdvReac Confusion Verified 06/13/24 15:53 (Dairy) [Dairy] Review of Systems ROS Statement: Those systems with pertinent positive or pertinent negative responses have been documented in the HPI. Review of Systems: CONST: Denies fever EYES: Denies blurry vision ENT: Denies nasal congestion C/V: Endorses chest pain RESP: Denies shortness of breath GI: Denies abdominal pain : Denies dysuria SKIN: Denies rash. MSK: Denies joint pain. NEURO: Denies headache ROS Other: All systems not noted in ROS Statement are negative. Past Medical History Past Medical History: GERD/Reflux, Hypertension Additional Past Medical History / Comment(s): covid 2023, seasonal allergies History of Any Multi-Drug Resistant Organisms: None Reported Past Surgical History: Orthopedic Surgery Additional Past Surgical History / Comment(s): thumb Past Psychological History: No Psychological Hx Reported Smoking Status: Former smoker Past Alcohol Use History: None Reported Past Drug Use History: None Reported General Exam - General Exam Comments Initial Comments: General: Appears in no acute distress. HEAD: Normal with no signs of head trauma. EYES: EOMI ENT: Hearing grossly intact, normal oropharynx. RESPIRATORY: Clear breath sounds bilaterally. No wheezes, rales, or rhonchi. C/V: Regular rate and rhythm. S1 and S2 auscultated, no edema, peripheral pulses 2+ and intact throughout. Chest pain is not reproducible on palpation. ABD: Abd is soft, nontender, nondistended EXT: no obvious deformity SKIN: No rashes or lesions observed on exposed skin. NEURO: Alert and oriented x 4. Limitations: no limitations Course Vital Signs 11/20/24 11/20/24 11/20/24 21:46 22:05 22:14 Temperature 97.9 F Pulse Rate 89 52 L 54 L Respiratory 18 18 18 Rate Blood Pressure 186/80 170/94 147/94 O2 Sat by Pulse 95 96 Oximetry 11/20/24 22:20 Temperature Pulse Rate 52 L Respiratory 16 Rate Blood Pressure 134/81 O2 Sat by Pulse 95 Oximetry Medical Decision Making - Medical Decision Making Was pt. sent in by a medical professional or institution (, PA, [employer], urgent care, hospital, or senior living...) When possible be specific @ -No Did you speak to anyone other than the patient for history (EMS, parent, family, police, friend...)? What history was obtained from this source @ -No Did you review nursing and triage notes (agree or disagree)? Why? @ -I reviewed and agree with nursing and triage notes Were old charts reviewed (outside hosp., previous admission, EMS record, old EKG, old radiological studies, urgent care reports/EKG's, senior living records)? Report findings @ -Reviewed old charts which showed patient had a stress test on October 14, 2024 that was unremarkable. Differential Diagnosis (chest pain, altered mental status, abdominal pain women, abdominal pain men, vaginal bleeding, weakness, fever, dyspnea, syncope, headache, dizziness, GI bleed, back pain, seizure, CVA, palpatations, mental health, musculoskeletal)? @ -Differential Chest Pain: Stable Angina, Unstable Angina, STEMI, NSTEMI Aortic Dissection, Pneumothorax, Musculoskeletal, Esophageal Spasm GERD, Cholecystitis, Pancreatitis, Zoster, this is not meant to be an all-inclusive list. EKG interpreted by me (3pts min.). @ -As above X-rays interpreted by me (1pt min.). @ -Chest x-ray reveals no obvious acute cardiopulmonary process. CT interpreted by me (1pt min.). @ -None done U/S interpreted by me (1pt. min.). @ -None done What testing was considered but not performed or refused? (CT, X-rays, U/S, labs)? Why? @ -None What meds were considered but not given or refused? Why? @ -None Did you discuss the management of the patient with other professionals (professionals i.e. , PA, [employer], lab, RT, psych nurse, social insurance specialist, syrup machine laborer, teacher, staff command and control officer, case hardener)? Give summary @ -I spoke with the admitting provider, Dr. Sumner of [facility] who accepted the admission. Was smoking cessation discussed for >3mins.? @ -No Was critical care preformed (if so, how long)? @ -No Were there social determinants of health that impacted care today? How? (Homelessness, low income, unemployed, alcoholism, drug addiction, transportation, low edu. Level, literacy, decrease access to med. care, fpc, rehab)? @ -No Was there de-escalation of care discussed even if they declined (Discuss DNR or withdrawal of care, Hospice)? DNR status @ -No What co-morbidities impacted this encounter? (DM, HTN, Smoking, COPD, CAD, Cancer, CVA, ARF, Chemo, Hep., AIDS, mental health diagnosis, sleep apnea, morbid obesity)? @ -None Was patient admitted / discharged? Hospital course, mention meds given and route, prescriptions, significant lab abnormalities, going to OR and other pertinent info. @ -The patient's presentation and physical exam, presents emergency department complaining of chest pain. This is an acute on chronic presentation. We will obtain cardiac workup, as well as symptomatically treat with IV fluids, nitro, aspirin 324 mg. He was in agreement this plan. No significant cardiac history for the patient however he has had multiple Holter monitors. EKG shows no signs of acute ischemia.Chest x-ray unremarkable. Laboratory studies are remarkable for undetectable troponin. Remainder the workup unremarkable. I discussed results with the patient. Chest pain did improve following nitro administration to a 1 out of 10. Nitropaste will be applied. He is resting comfortably. Heart score is approximately a 4 which is moderate. Patient will be admitted to the hospital for cardiology observation. Cardiology consulted. We will trend the troponin. He was in agreement this plan. I spoke with the admitting provider, Dr. Sumner of [facility] who accepted the admission. Undiagnosed new problem with uncertain prognosis? @ -No Drug Therapy requiring intensive monitoring for toxicity (Heparin, Nitro, Insulin, Cardizem)? @ -No Were any procedures done? @ -No Diagnosis/symptom? @ -Chest pain Acute, or Chronic, or Acute on Chronic? @ -Acute Uncomplicated (without systemic symptoms) or Complicated (systemic symptoms)? @ -Complicated Side effects of treatment? @ -None Exacerbation, Progression, or Severe Exacerbation] @ -No Poses a threat to life or bodily function? @ -Potentially, yes - Lab Data Result diagrams: 11/20/24 22:06 11/20/24 22:06 Lab Results 11/20/24 11/20/24 11/20/24 Range/Units 22:06 22:06 22:06 WBC 10.8 H (3.8-10.6) k/uL RBC 5.18 (4.30-5.90) m/uL Hgb 15.3 (13.0-17.5) gm/dL Hct 44.8 (39.0-53.0) % MCV 86.6 (80.0-100.0) fL MCH 29.6 (25.0-35.0) pg MCHC 34.2 (31.0-37.0) g/dL RDW 12.8 (11.5-15.5) % Plt Count 254 (150-450) k/uL MPV 8.8 Neutrophils % 54 % Lymphocytes % 34 % Monocytes % 5 % Eosinophils % 4 % Basophils % 1 % Neutrophils # 5.8 (1.3-7.7) k/uL Lymphocytes # 3.7 (1.0-4.8) k/uL Monocytes # 0.6 (0-1.0) k/uL Eosinophils # 0.5 (0-0.7) k/uL Basophils # 0.1 (0-0.2) k/uL PT 10.7 (10.0-12.5) sec INR 1.0 (<1.2) APTT 24.5 (22.0-30.0) sec Sodium 140 (137-145) mmol/L Potassium 3.7 (3.5-5.1) mmol/L Chloride 105 (98-107) mmol/L Carbon Dioxide 25 (22-30) mmol/L Anion Gap 10 mmol/L BUN 15 (9-20) mg/dL Creatinine 1.13 (0.66-1.25) mg/dL Est GFR (CKD-EPI)AfAm 85 (>60 ml/min/1.73 sqM) Est GFR (CKD-EPI)NonAf 74 (>60 ml/min/1.73 sqM) Glucose 119 H (74-99) mg/dL Calcium 9.6 (8.4-10.2) mg/dL Magnesium 1.9 (1.6-2.3) mg/dL Total Bilirubin 0.7 (0.2-1.3) mg/dL AST 29 (17-59) U/L ALT 28 (4-49) U/L Alkaline Phosphatase 65 (38-126) U/L Troponin I (0.000-0.034) ng/mL NT-Pro-B Natriuret Pep 59 pg/mL Total Protein 7.2 (6.3-8.2) g/dL Albumin 4.2 (3.5-5.0) g/dL Lipase 106 (23-300) U/L TSH 3.360 (0.465-4.680) mIU/L 11/20/24 Range/Units 22:06 WBC (3.8-10.6) k/uL RBC (4.30-5.90) m/uL Hgb (13.0-17.5) gm/dL Hct (39.0-53.0) % MCV (80.0-100.0) fL MCH (25.0-35.0) pg MCHC (31.0-37.0) g/dL RDW (11.5-15.5) % Plt Count (150-450) k/uL MPV Neutrophils % % Lymphocytes % % Monocytes % % Eosinophils % % Basophils % % Neutrophils # (1.3-7.7) k/uL Lymphocytes # (1.0-4.8) k/uL Monocytes # (0-1.0) k/uL Eosinophils # (0-0.7) k/uL Basophils # (0-0.2) k/uL PT (10.0-12.5) sec INR (<1.2) APTT (22.0-30.0) sec Sodium (137-145) mmol/L Potassium (3.5-5.1) mmol/L Chloride (98-107) mmol/L Carbon Dioxide (22-30) mmol/L Anion Gap mmol/L BUN (9-20) mg/dL Creatinine (0.66-1.25) mg/dL Est GFR (CKD-EPI)AfAm (>60 ml/min/1.73 sqM) Est GFR (CKD-EPI)NonAf (>60 ml/min/1.73 sqM) Glucose (74-99) mg/dL Calcium (8.4-10.2) mg/dL Magnesium (1.6-2.3) mg/dL Total Bilirubin (0.2-1.3) mg/dL AST (17-59) U/L ALT (4-49) U/L Alkaline Phosphatase (38-126) U/L Troponin I <0.012 (0.000-0.034) ng/mL NT-Pro-B Natriuret Pep pg/mL Total Protein (6.3-8.2) g/dL Albumin (3.5-5.0) g/dL Lipase (23-300) U/L TSH (0.465-4.680) mIU/L - EKG Data -: EKG Interpreted by Me EKG Comments: 12-lead Electrocardiogram Interpretation Note EKG was reviewed and interpreted by myself. 12-lead ECG performed at 2158 is interpreted by me as revealing sinus bradycardia at a rate of 49 beats per mi nute. [place] is normal. MD interval is 189 ms, QRS duration is 98 ms, QTc is 424 ms.. There were no ST or T wave abnormalities to suggest myocardial ischemia or injury. R wave progression across the precordium was satisfactory. By my interpretation this EKG is non-diagnostic for acute ischemia. Disposition Clinical Impression: Chest pain Disposition: ADMITTED IP TO THIS HOSP Condition: Stable Time of Disposition: 23:40
[2024-11-20] MEDS ORDERED: ONDANSETRON 4 MG/2 ML VIAL IVP PRN (23:37)
[2024-11-20] MEDS ORDERED: NALOXONE 0.4 MG/ML 1 ML VIAL IV PRN (23:37)
--- NOTE | 2024-11-20 23:50 | XR ---
EXAM: XR Chest, 2 Views CLINICAL HISTORY: XR Reason: Chest Pain TECHNIQUE: Frontal and lateral views of the chest. COMPARISON: No relevant prior studies available. FINDINGS: Lungs: Mild bronchovascular crowding and possible small amount of left basilar scarring or atelectasis, similar to previous. No new infiltrate identified. Pleural space: Unremarkable. No pneumothorax. Heart: Unremarkable. No cardiomegaly. Mediastinum: Unremarkable. Normal mediastinal contour. Bones/joints: Mild atheromatosis in the lower thoracic spine. No acute fracture. Upper abdomen: Unremarkable as visualized. No pneumoperitoneum under the diaphragm. IMPRESSION: Mild bronchovascular crowding and possible small amount of left basilar scarring or atelectasis, similar to previous. No new infiltrate identified.
[2024-11-20] MEDS: SODIUM CHLORIDE 0.9% 1,000 ML IV SCH (23:58)
[2024-11-20] MEDS: NITROGLYCERIN OINT 1 INCH/GM PACKET TOPICAL SCH (23:58)
[2024-11-21 05:28] LABS: Basophils % (A) 1 %; Eosinophils # (A) 0.3 k/uL (0-0.7); Eosinophils % (A) 4 %; HCT 40.7 % (39.0-53.0); HGB 13.4 gm/dL (13.0-17.5); Lymphocytes # (A) 3.3 k/uL (1.0-4.8); Lymphocytes % (A) 40 %; MCH 28.6 pg (25.0-35.0); MCV 86.9 fL (80.0-100.0); Mean Platelet Volume 8.9; Monocytes # (A) 0.5 k/uL (0-1.0); Monocytes % (A) 6 %; Neutrophils # (A) 3.7 k/uL (1.3-7.7); Neutrophils % (A) 46 %; Platelet Count 232 k/uL (150-450); RBC 4.69 m/uL (4.30-5.90); RDW 12.9 % (11.5-15.5); WBC 8.1 k/uL (3.8-10.6)
[2024-11-21 05:40] LABS: ALT 23 U/L (4-49); AST 36 U/L (17-59); African American GFR (CKD) >90 (>60 ml/min/1.73 sqM); Albumin 3.5 g/dL (3.5-5.0); Alkaline Phosphatase 55 U/L (38-126); Anion Gap 5 mmol/L; Blood Urea Nitrogen 14 mg/dL (9-20); Carbon Dioxide 25 mmol/L (22-30); Chloride 108 mmol/L (98-107); Glucose 92 mg/dL (74-99); Non-African American GFR(CKD) 88 (>60 ml/min/1.73 sqM); Potassium 3.9 mmol/L (3.5-5.1); Sodium 138 mmol/L (137-145); Total Bilirubin 0.7 mg/dL (0.2-1.3); Total Protein 6.2 g/dL (6.3-8.2)
--- NOTE | 2024-11-21 06:29 | P.HPIM ---
History of Present Illness H&P Date: 11/21/24 History of present illness; patient is a 54-year-old gentleman with past medical history significant for hypertension who presented to the ER because of chest pain. Patient stated he was all right yesterday afternoon while walking his dog he experienced chest discomfort it was central location, pressure-like, nonradiating, no aggravating or relieving factor associated with this chest pain. Patient also noted that his heart was fluttering of the time. Patient also complaining of headache at that time. There was no complaint of orthopnea or PND. There was no complaint of shortness of breath at that time. There was no episode of diaphoresis during this episode of chest pain. Because of chest pain, patient became concerned decided to come to theER Initial lab work done in the ER showed WBC 10.8, hemoglobin 15.3, platelet count 254, sodium 140, potassium 3.7, BUN 15, creatinine 1.13, troponin 0.012 TSH 3.36 EKG done in the ER showed heart rate of 49, no ST segment elevation or depr ession seen, no T-wave inversions seen. Chest x-ray done in the ER showed mild bronco vascular crowding and possible small amount of left basilar scarring or atelectasis Patient admitted to internal medicine service REVIEW OF SYSTEMS: CONSTITUTIONAL: No fever, no malaise, no fatigue. HEENT: No recent visual problems or hearing problems. Denied any sore throat. CARDIOVASCULAR: As mentioned jerri PULMONARY: As mentioned above GASTROINTESTINAL: No diarrhea, no nausea, no vomiting, no abdominal pain. NEUROLOGICAL: No headaches, no weakness, no numbness. HEMATOLOGICAL: Denies any bleeding or petechiae. GENITOURINARY: Denies any burning micturition, frequency, or urgency. MUSCULOSKELETAL/RHEUMATOLOGICAL: Denies any joint pain, swelling, or any muscle pain. ENDOCRINE: Denies any polyuria or polydipsia. The rest of the 14-point review of systems is negative. PHYSICAL EXAMINATION: GENERAL: The patient is alert and oriented x3, not in any acute distress. Well developed, well nourished. HEENT: Pupils are round and equally reacting to light. EOMI. No scleral icterus. No conjunctival pallor. Normocephalic, atraumatic. No pharyngeal erythema. No thyromegaly. CARDIOVASCULAR: S1 and S2 present. No murmurs, rubs, or gallops. PULMONARY: Chest is clear to auscultation, no wheezing or crackles. ABDOMEN: Soft, nontender, nondistended, normoactive bowel sounds. No palpable organomegaly. MUSCULOSKELETAL: No joint swelling or deformity. EXTREMITIES: No cyanosis, clubbing, or pedal edema. NEUROLOGICAL: Gross neurological examination did not reveal any focal deficits. SKIN: No rashes. Assessment and plan Chest pain, rule out acute coronary syndrome Hypertension History of hayfever Monitor vital signs Monitor CBC Monitor CMP Continue telemetry monitoring Trend troponin Ordered D-dimer Ordered 2D echo Ordered Protonix Ordered antiemetics Resume home med Consult cardiology Labs and medication were reviewed.. Continue same treatment. Continue with symptomatic treatment. Resume home medication. Monitor labs and vitals. DVT and GI prophylaxis. Further recommendations as per clinical course of the patient Dictation was produced using [employer] dictation software. please excuse any grammatical, word or spelling errors. Past Medical History Past Medical History: GERD/Reflux, Hypertension Additional Past Medical History / Comment(s): covid 2023, seasonal allergies History of Any Multi-Drug Resistant Organisms: None Reported Past Surgical History: Orthopedic Surgery Additional Past Surgical History / Comment(s): thumb Past Psychological History: No Psychological Hx Reported Smoking Status: Former smoker Past Alcohol Use History: None Reported Past Drug Use History: None Reported Medications and Allergies Home Medications Medication Instructions Recorded Confirmed Type Amoxicillin/Potassium Clav 1 tab PO Q12HR 7 Days #14 tab 10/16/19 Rx [Augmentin 875-125 Tablet] lisinopriL [Prinivil] 5 mg PO DAILY 10/16/19 10/16/19 History Meclizine [Antivert] 25 mg PO TID #15 tab 03/27/20 Rx Ibuprofen [Motrin] 800 mg PO Q8HR PRN #30 tab 02/18/23 Rx Lidocaine 5% Patch [Lidoderm 5% 1 patch TOPICAL DAILY PRN #7 patch 02/18/23 Rx Patch] Allergies Allergy/AdvReac Type Severity Reaction Status Date / Time Milk Containing Products AdvReac Confusion Verified 06/13/24 15:53 (Dairy) [Dairy] Physical Exam Vitals: Vital Signs Temp Pulse Resp BP Pulse Ox 11/21/24 04:25 41 L 16 123/78 95 11/21/24 02:00 41 L 16 113/77 98 11/21/24 00:05 43 L 18 120/75 95 11/20/24 22:20 52 L 16 134/81 95 11/20/24 22:14 54 L 18 147/94 96 11/20/24 22:05 52 L 18 170/94 11/20/24 21:46 97.9 F 89 18 186/80 95 Intake and Output 11/20/24 11/20/24 11/21/24 14:59 22:59 06:59 Other: Weight 90.718 kg Results CBC & Chem 7: 11/21/24 05:14 11/21/24 05:14 Labs: Abnormal Lab Results - Last 24 Hours (Table) 11/20/24 11/20/24 11/21/24 Range/Units 22:06 22:06 05:14 WBC 10.8 H (3.8-10.6) k/uL Chloride 108 H (98-107) mmol/L Glucose 119 H (74-99) mg/dL Total Protein 6.2 L (6.3-8.2) g/dL
[2024-11-21] MEDS: PANTOPRAZOLE 40 MG TABLET PO SCH (08:08)
[2024-11-21] MEDS: lisinopriL 5 MG TAB PO SCH (10:56)
--- NOTE | 2024-11-21 11:08 | P.CRDCN ---
History of Present Illness Consult date: 11/21/24 History of present illness: The patient is a pleasant 54-year-old gentleman with a past medical history significant for hypertension and history of bradycardia as well as cardiac arrhythmia with PVCs presented to the emergency department complaining of chest discomfort. He was in his usual state of health till yesterday when he was walking his dog and he was in a fast walk when he started experiencing discomfort in the middle of the chest as a pressure on the chest with no radiation to the arms or neck or shoulders or back but it was associated with heart racing and fluttering but no dizziness or lightheadedness and no presyncope or syncope. He underwent further evaluation including an EKG showing sinus mechanism with no ischemic ST or T wave abnormalities. Troponin came to be unremarkable but he was noted to be bradycardic in the emergency department with heart rate in the upper 40s and lower 50s but he was asymptomatic during these episodes. He is known to have sinus bradycardia currently not on any AV gabriela donna agents. The rest of the workup came in to be unremarkable except no TSH. He was started on nitro patch with improvement in the chest discomfort and currently his chest pain-free. He underwent a stress test in September 2024 and that was exercise treadmill stress test came in to be unremarkable with excellent exercise tolerance. The physical examination is remarkable for regular rhythm with a soft systolic murmur and clear breathing sounds bilaterally and no edema was noted. Assessment An episode of chest discomfort has resolved and currently patient is chest pain- free Hypertension Asymptomatic bradycardia Plan Acute coronary event was ruled out The patient underwent recently a stress test came in to be unremarkable We will try to get the patient off Nitropatch and assess for any symptoms and if he is asymptomatic he potentially can be discharged home Follow-up with the patient as an outpatient and he already scheduled to see a performing artist in November 2024 Past Medical History Past Medical History: GERD/Reflux, Hypertension Additional Past Medical History / Comment(s): covid 2023, seasonal allergies History of Any Multi-Drug Resistant Organisms: None Reported Past Surgical History: Orthopedic Surgery Additional Past Surgical History / Comment(s): thumb Past Psychological History: No Psychological Hx Reported Smoking Status: Former smoker Past Alcohol Use History: None Reported Past Drug Use History: None Reported Medications and Allergies Home Medications Medication Instructions Recorded Confirmed Type lisinopriL [Prinivil] 5 mg PO DAILY 10/16/19 11/21/24 History Cetirizine HCl [Zyrtec] 10 mg PO DAILY 11/21/24 11/21/24 History Omeprazole 20 mg PO DAILY 11/21/24 11/21/24 History Allergies Allergy/AdvReac Type Severity Reaction Status Date / Time Milk Containing Products AdvReac Confusion Verified 11/21/24 10:55 (Dairy) [Dairy] Physical Exam Vitals: Vital Signs Temp Pulse Resp BP Pulse Ox 11/21/24 06:54 44 L 18 118/86 95 11/21/24 04:25 41 L 16 123/78 95 11/21/24 02:00 41 L 16 113/77 98 11/21/24 00:05 43 L 18 120/75 95 11/20/24 22:20 52 L 16 134/81 95 11/20/24 22:14 54 L 18 147/94 96 11/20/24 22:05 52 L 18 170/94 11/20/24 21:46 97.9 F 89 18 186/80 95 Intake and Output 11/20/24 11/21/24 11/21/24 22:59 06:59 14:59 Other: Weight 90.718 kg Results 11/21/24 05:14 11/21/24 05:14 Cardiac Enzymes 11/20/24 11/20/24 11/21/24 Range/Units 22:06 22:06 00:20 AST 29 (17-59) U/L Troponin I <0.012 0.013 (0.000-0.034) ng/mL 11/21/24 11/21/24 Range/Units 05:14 05:14 AST 36 (17-59) U/L Troponin I <0.012 (0.000-0.034) ng/mL Coagulation 11/20/24 Range/Units 22:06 PT 10.7 (10.0-12.5) sec APTT 24.5 (22.0-30.0) sec CBC 11/20/24 11/21/24 Range/Units 22:06 05:14 WBC 10.8 H 8.1 (3.8-10.6) k/uL RBC 5.18 4.69 (4.30-5.90) m/uL Hgb 15.3 13.4 (13.0-17.5) gm/dL Hct 44.8 40.7 (39.0-53.0) % Plt Count 254 232 (150-450) k/uL Comprehensive Metabolic Panel 11/20/24 11/21/24 Range/Units 22:06 05:14 Sodium 140 138 (137-145) mmol/L Potassium 3.7 3.9 (3.5-5.1) mmol/L Chloride 105 108 H (98-107) mmol/L Carbon Dioxide 25 25 (22-30) mmol/L BUN 15 14 (9-20) mg/dL Creatinine 1.13 0.98 (0.66-1.25) mg/dL Glucose 119 H 92 (74-99) mg/dL Calcium 9.6 9.0 (8.4-10.2) mg/dL AST 29 36 (17-59) U/L ALT 28 23 (4-49) U/L Alkaline Phosphatase 65 55 (38-126) U/L Total Protein 7.2 6.2 L (6.3-8.2) g/dL Albumin 4.2 3.5 (3.5-5.0) g/dL Current Medications Generic Name Dose Route Start Last Admin Trade Name Freq PRN Reason Stop Dose Admin Sodium Chloride 1,000 mls @ 75 mls/hr 11/20/24 23:45 11/20/24 23:58 Saline 0.9% IV 75 mls/hr .[id number] BELLO Administration Lisinopril 5 mg 11/21/24 09:00 11/21/24 10:56 Lisinopril 5 Mg Tab PO 5 mg DAILY BELLO Administration Naloxone HCl 0.2 mg 11/20/24 23:37 Naloxone 0.4 Mg/Ml 1 Ml Vial IV Q2M PRN Opioid Reversal Nitroglycerin 0.5 inch 11/20/24 23:40 11/21/24 08:08 Nitroglycerin Oint 1 Inch/Gm Packet TOPICAL 0.5 inch Q8HR BELLO Administration Ondansetron HCl 4 mg 11/20/24 23:37 Ondansetron 4 Mg/2 Ml Vial IVP Q8HR PRN Nausea And Vomiting Pantoprazole Sodium 40 mg 11/21/24 07:30 11/21/24 08:08 Pantoprazole 40 Mg Tablet PO 40 mg [id number] BELLO Administration Intake and Output 11/20/24 11/21/24 11/21/24 22:59 06:59 14:59 Other: Weight 90.718 kg 11/21/24 05:14 11/21/24 05:14
--- NOTE | 2024-11-22 18:06 | CA ---
Transthoracic Echo Report Name: Aidan Linton Age: 54 Gender: M : 1970 Exam Date: 11/22/2024 07:53 Exam Location: [facility] Ht (in): 66 Wt (lb): 200 Ordering Physician: Berlin Cali MD Attending/Referring Phys: Operations Manager/Coordinator Jeana Mitchell RDCS Procedure CPT: Indications: Chest Pain Cardiac Hx: Technical Quality: Good Contrast 1: Total Dose (mL): Contrast 2: Total Dose (mL): MEASUREMENTS (Male / Female) Normal Values 2D ECHO LV Diastolic Diameter PLAX 5.7 cm 4.2 - 5.9 / 3.9 - 5.3 cm LV Systolic Diameter PLAX 3.7 cm IVS Diastolic Thickness 0.8 cm 0.6 - 1.0 / 0.6 - 0.9 cm LVPW Diastolic Thickness 1.0 cm 0.6 - 1.0 / 0.6 - 0.9 cm LV Relative Wall Thickness 0.3 RV Internal Dim ED PLAX 3.6 cm LA Systolic Diameter LX 3.9 cm 3.0 - 4.0 / 2.7 - 3.8 cm LV Diastolic Volume MOD 4C 159.7 cm??? LV Systolic Volume MOD 4C 82.6 cm??? LV Ejection Fraction MOD 4C 48.3 % LV Cardiac Index MOD 4C 2474.1 cm???/min???m??? LV Diastolic Length 4C 9.5 cm LV Systolic Length 4C 7.8 cm LV Diastolic Volume MOD 2C 122.6 cm??? LV Systolic Volume MOD 2C 62.1 cm??? LV Ejection Fraction MOD 2C 49.4 % LV Cardiac Index MOD 2C 1942.2 cm???/min???m??? LV Diastolic Length 2C 8.8 cm LV Systolic Length 2C 7.2 cm LA Volume 73.8 cm??? 18 - 58 / 22 - 52 cm??? LA Volume Index 35.4 cm???/m??? 16 - 28 cm???/m??? M-MODE Aortic Root Diameter MM 3.6 cm DOPPLER AV Peak Velocity 99.9 cm/s AV Peak Gradient 4.0 mmHg MV Area PHT 3.5 cm??? Mitral E Point Velocity 86.7 cm/s Mitral A Point Velocity 64.4 cm/s Mitral E to A Ratio 1.3 MV Deceleration Time 219.1 ms TR Peak Velocity 206.9 cm/s TR Peak Gradient 17.1 mmHg Right Ventricular Systolic Press 22.1 mmHg FINDINGS Left Ventricle Left ventricular ejection fraction is estimated at 50-55 %. Left ventricular cavity size normal. Left ventricular wall thickness normal. No obvious regional wall motion abnormalities. Right Ventricle Moderate right ventricular dilatation. Right ventricular systolic pressure within normal limits. Right Atrium Normal right atrial size. No spontaneous contrast in the right atrium. Left Atrium Moderately increased left atrial volume. Mildly increased left atrial area. No left atrial thrombus or mass present. Mitral Valve Structurally normal mitral valve. No evidence for mitral valve prolapse. No mitral stenosis. Trace mitral regurgitation. Aortic Valve Trileaflet aortic valve. No aortic valve stenosis or regurgitation. Tricuspid Valve Structurally normal tricuspid valve. Mild tricuspid regurgitation. Pulmonic Valve Structurally normal pulmonic valve. No pulmonic regurgitation. Pericardium No pericardial effusion. Aorta Normal size aortic root and proximal ascending aorta. CONCLUSIONS Indication: Chest pain Preserved LV size and function ejection fraction at the lower limits of normal Left atrial enlargement Previewed by: Dr. Diego Amaral MD (Electronically Signed) Final Date: 22 November 2024 18:05
[2024-11-22 19:56] VITALS: RESP 17
--- NOTE | 2024-11-22 20:35 | P.CRDCN ---
History of Present Illness History of present illness: Patient interviewed and examined Nitroglycerin off. He has not had any chest pain Heart rates are in the 50s His complaints are that of palpitations and an abnormality noted on 2 serial Holter monitors that are prescribed at the primary physicians office I made him walk up and down the hallway and I could not provoke any of his palpitations He has had a stress test last month which was normal His 2D echo shows LV function of the lower limits of normal and mild left atrial enlargement He has a history of hypertension His mother at an early age at 52 from an acute myocardial infarction Normal TSH NT proBNP normal Cardiac enzymes normal On examination Blood pressure 133/71 mmHg Pulse rate in the 50s afebrile Heart sounds S1-S2 are normal No murmurs no gallop no rub No exercise-induced arrhythmias at this time Plan Increase lisinopril to 5 mg twice daily for better blood pressure control since he has hypertension Observe on telemetry. Patient instructed to walk this evening in the hallways. I will hold his discharge Tomorrow morning the plan is to obtain the ECG strips from his primary care physician's office to see what exactly they saw that was of concern Lipid panel Hemoglobin A1c Further decision thereafter Past Medical History Past Medical History: GERD/Reflux, Hypertension Additional Past Medical History / Comment(s): covid 2023, seasonal allergies, Kidney Stones History of Any Multi-Drug Resistant Organisms: None Reported Past Surgical History: Orthopedic Surgery Additional Past Surgical History / Comment(s): thumb, colonoscopy (2021), Past Anesthesia/Blood Transfusion Reactions: No Reported Reaction Past Psychological History: No Psychological Hx Reported Smoking Status: Never smoker Past Alcohol Use History: None Reported Past Drug Use History: None Reported Medications and Allergies Home Medications Medication Instructions Recorded Confirmed Type lisinopriL [Prinivil] 5 mg PO DAILY 10/16/19 11/21/24 History Cetirizine HCl [Zyrtec] 10 mg PO DAILY 11/21/24 11/21/24 History Omeprazole 20 mg PO DAILY 11/21/24 11/21/24 History Allergies Allergy/AdvReac Type Severity Reaction Status Date / Time Milk Containing Products AdvReac Confusion Verified 11/21/24 10:55 (Dairy) [Dairy] Physical Exam Vitals: Vital Signs Temp Pulse Resp BP Pulse Ox 11/22/24 19:51 98.1 F 51 L 17 167/93 99 11/22/24 14:39 98.0 F 49 L 13 144/82 100 11/22/24 07:00 97.8 F 56 L 14 144/84 98 11/22/24 00:53 97.6 F 52 L 18 133/71 96 11/21/24 21:10 97.8 F 49 L 18 162/88 98 Intake and Output 11/22/24 11/22/24 11/22/24 06:59 14:59 22:59 Intake Total 222 Balance 222 Intake: Oral 222 Other: # Voids 2 2 Results 11/21/24 05:14 11/21/24 05:14 Current Medications Generic Name Dose Route Start Last Admin Trade Name Freq PRN Reason Stop Dose Admin Sodium Chloride 1,000 mls @ 75 mls/hr 11/20/24 23:45 11/22/24 17:02 Saline 0.9% IV Not Given .[id number] [facility] Lisinopril 5 mg 11/22/24 20:45 Lisinopril 5 Mg Tab PO BID BELLO Naloxone HCl 0.2 mg 11/20/24 23:37 Naloxone 0.4 Mg/Ml 1 Ml Vial IV Q2M PRN Opioid Reversal Nitroglycerin 0.5 inch 11/20/24 23:40 11/22/24 17:02 Nitroglycerin Oint 1 Inch/Gm Packet TOPICAL Not Given Q8HR [facility] Ondansetron HCl 4 mg 11/20/24 23:37 Ondansetron 4 Mg/2 Ml Vial IVP Q8HR PRN Nausea And Vomiting Pantoprazole Sodium 40 mg 11/21/24 07:30 11/22/24 05:52 Pantoprazole 40 Mg Tablet PO 40 mg [id number] [facility] Administration Intake and Output 11/22/24 11/22/24 11/22/24 06:59 14:59 22:59 Intake Total 222 Balance 222 Intake: Oral 222 Other: # Voids 2 2 11/21/24 05:14 11/21/24 05:14
[2024-11-22] MEDS: lisinopriL 5 MG TAB PO SCH (21:37)
--- NOTE | 2024-11-23 05:35 | P.PN ---
Subjective Progress Note Date: 11/22/24 History of present illness; patient is a 54-year-old gentleman with past medical history significant for hypertension who presented to the ER because of chest pain. Patient stated he was all right yesterday afternoon while walking his dog he experienced chest discomfort it was central location, pressure-like, nonradiating, no aggravating or relieving factor associated with this chest pain. Patient also noted that his heart was fluttering of the time. Patient also complaining of headache at that time. There was no complaint of orthopnea or PND. There was no complaint of shortness of breath at that time. There was no episode of diaphoresis during this episode of chest pain. Because of chest pain, patient became concerned decided to come to theER Initial lab work done in the ER showed WBC 10.8, hemoglobin 15.3, platelet count 254, sodium 140, potassium 3.7, BUN 15, creatinine 1.13, troponin 0.012 TSH 3.36 EKG done in the ER showed heart rate of 49, no ST segment elevation or depressi on seen, no T-wave inversions seen. Chest x-ray done in the ER showed mild bronco vascular crowding and possible small amount of left basilar scarring or atelectasis Patient admitted to internal medicine service 11/22/2024 Patient is seen in follow-up today awaiting cardiology consultation as patient had chest pain. Patient reports his chest pain is resolved and currently awaiting cardiology consultation. Patient was on nitro paste which has been discontinued and heart rates in the low 50s. Patient denies dizziness, lightheadedness, or syncopal episodes. Patient has been encouraged to increase activity as tolerated and get up and walk more often and continue with telemetry monitoring. Patient has a follow-up appointment with Dr. Tamayo at the end of November. Echo is pending at this time as well. Review of systems: Constitutional: No reports of fatigue, fever, or chills Cardiovascular: No reports of chest pain or palpitations Respiratory: No reports of shortness of breath or cough GI: No reports of nausea, vomiting, or diarrhea : No reports of dysuria or retention Neurovascular: No reports of weakness or numbness All medications have been reviewed PHYSICAL EXAMINATION: GENERAL: The patient is alert and oriented x3. Well developed, obese, appears older than stated age HEENT: Pupils are round and equally reacting to light. EOMI. No scleral icterus. No conjunctival pallor. Normocephalic, atraumatic. No pharyngeal erythema. No thyromegaly. CARDIOVASCULAR: S1 and S2 muffled, bradycardia PULMONARY: Diminished breath sounds bilaterally otherwise chest is clear to a uscultation, no wheezing or crackles. ABDOMEN: Soft, obese, nontender, nondistended, normoactive bowel sounds. No palpable organomegaly. MUSCULOSKELETAL: No joint swelling or deformity. EXTREMITIES: No cyanosis, clubbing, or pedal edema. NEUROLOGICAL: Gross neurological examination did not reveal any focal deficits. SKIN: No rashes. Assessment: Chest pain, ruled out acute coronary syndrome Hypertension History of hayfever Obesity with a BMI 32.3 GERD GI prophylaxis DVT prophylaxis Full code Plan: Patient was admitted with chest pain which has resolved and patient denies any further episodes. Patient has a scheduled appointment with Dr. Tamayo on December 16 and will attempt to make a sooner appointment in the outpatient setting. Currently awaiting cardiology consultation and evaluation along with 2D echo which is pending at this time. Adjustments being made to blood pressure medication and recommend monitoring overnight on continue telemetry Encouraged increase activity as tolerated Will follow-up on repeat labs, replace electrolytes per protocol Await cardiology clearance for discharge planning, possibly in the next 24 hours Overall prognosis is guarded The impression and plan of care has been dictated by Lauren Kennedy, Nurse Practitioner as directed. Dr. Joseph MD I have performed a history and examination and MDM of this patient, discussed the same with the dictator, and agree with the dictator's assessment and plan as written ,documented as a scribe. Based on total visit time, I have performed more than 50% of the visit. Objective - Vital Signs Vital signs: Vital Signs Temp 97.5 F L 11/23/24 01:37 Pulse 53 L 11/23/24 01:37 Resp 17 11/23/24 01:37 BP 120/68 11/23/24 01:37 Pulse Ox 98 11/23/24 01:37 FiO2 Intake & Output 11/22/24 11/22/24 11/23/24 06:59 18:59 06:59 Intake Total 222 Balance 222 Weight 90.718 kg Intake: Oral 222 Other: # Voids 2 2 2 - Labs CBC & Chem 7: 11/21/24 05:14 11/21/24 05:14
[2024-11-23 08:13] VITALS: BP 138/84; PULSE 46; TEMP 98
[2024-11-23 08:59] LABS: Chol/HDL Ratio 4.45 Ratio; LDL Cholesterol,Calculated 113.6 mg/dL (0.0-131.0)
--- NOTE | 2024-11-23 10:00 | P.CEMON ---
Holter monitor/event monitor reviewed Patient had to monitor his at [facility], ordered by Lauren Duarte Both monitors reveal sinus rhythm Frequent PACs atrial couplets No sustained atrial arrhythmias Mild nighttime bradycardia in the 50s No pauses Occasional sinus tachycardia Impression I do not see anything worrisome on this Holter monitor or event monitor Patient may go home today and follow-up with Dr. Pardo
[2024-11-23 10:36] LABS: BUN/Creat Ratio 14.33 Ratio (12.00-20.00); Blood Urea Nitrogen 17.2 mg/dL (9.0-27.0); Calcium 9.4 mg/dL (8.7-10.3); Carbon Dioxide 26.8 mmol/L (21.6-31.8); Chloride 103 mmol/L (96-109); Glucose 90 mg/dL (70-110); Potassium 4.1 mmol/L (3.5-5.5); Sodium 138 mmol/L (135-145)
--- NOTE | 2024-11-26 09:33 | P.DS ---
Providers Date of admission: 11/20/24 23:39 Expected date of discharge: 11/23/24 Attending physician: Neptali Sumner MD Consults: 11/20/24 23:37 Consult Physician Routine Consulting Provider: [facility] Consult Reason/Comments: chest pain Do you want consulting provider notified?: Yes Primary care physician: Geeta Atkins Hospital Course: Final diagnosis Chest pain, ruled out acute coronary syndrome Hypertension GERD history History of hayfever Obesity with a BMI 32.3 GERD GI prophylaxis DVT prophylaxis Full code Discharge disposition Patient is being discharged in a stable condition with guarded prognosis to home. Patient will follow-up with Dr. Lauren Lamb in the outpatient setting upon discharge. Patient is to continue with an event monitor and close outpatient follow-up with cardiology as scheduled. Total time taken is greater than 35 minutes. Hospital course This is a 54-year-old male who was recently admitted with chest pain, ruled out ACS. Patient evaluated by cardiology scheduled with Dr. Tamayo in the outpatient setting for possible ablation was noted to be having chest pain and felt palpitations. Patient will continue with an event monitor on discharge with adjustments to medications recommending close outpatient follow-up. Patient has been cleared by cardiology and would like to go home. Please refer to cardiology notes for further HPI. Currently no reports of chest pain, shortness of breath, or palpitations. Patient is afebrile. No reports of nausea or vomiting and patient is tolerating diet. Patient will be discharged home today. Guarded prognosis given significant comorbidities. Physical exam: Gen: This is a 54-year-old male who is awake, alert and oriented x 3, well- developed, appears older than stated age, obese HEENT: Head is atraumatic, normocephalic. Pupils equal, round. Sclerae is anicteric. NECK: Supple. No JVD. No lymphadenopathy. No thyromegaly. LUNGS: Clear to auscultation. No wheezes or rhonchi. No intercostal retractions. HEART: Regular rate and rhythm. No murmur. ABDOMEN: Soft. Obese, bowel sounds are present. No masses. No tenderness. EXTREMITIES: No pedal edema. No calf tenderness. NEUROLOGICAL: Patient is awake, alert and oriented x3. Cranial nerves 2 through 12 are grossly intact. Please refer to medication reconciliation sheet for a list of medications. The impression and plan of care has been dictated by Lauren Kennedy, Nurse Practitioner as directed. Dr. Joseph MD I have performed a history and examination and MDM of this patient, discussed the same with the dictator, and agree with the dictator's assessment and plan as written ,documented as a scribe. Based on total visit time, I have performed more than 50% of the visit. Patient Condition at Discharge: Stable Plan - Discharge Summary Discharge Rx Participant: No New Discharge Prescriptions: Continue lisinopriL [Prinivil] 5 mg PO DAILY Cetirizine HCl [Zyrtec] 10 mg PO DAILY Omeprazole 20 mg PO DAILY Discharge Medication List lisinopriL [Prinivil] 5 mg PO DAILY 10/16/19 [History] Cetirizine HCl [Zyrtec] 10 mg PO DAILY 11/21/24 [History] Omeprazole 20 mg PO DAILY 11/21/24 [History] Follow up Appointment(s)/Referral(s): Kush Tamayo DO [STAFF PHYSICIAN] - 1 Week (Office will call patient with appointment ) Lauren Duarte PAC [Family Provider] - 1-2 days Patient Instructions/Handouts: Chest Pain (DC) Activity/Diet/Wound Care/Special Instructions: Activity limited until follow-up Follow-up with cardiology Follow-up with primary care provider on discharge Continue taking medications as prescribed Discharge/Stand Alone Forms: Work/School Release Discharge Disposition: HOME SELF-CARE
== END 2024-11-23 10:33 | disposition home or self-care (01) ==
LOC: EC 21:45 → 6NMEDSUR 23:39
PROVIDERS: ADMIT Internal Medicine; ATTEND Internal Medicine
DX: R07.89 Other chest pain (principal); R00.1 Bradycardia, unspecified; I10 Essential (primary) hypertension; K21.9 Gastro-esophageal reflux disease without esophagitis; E66.9 Obesity, unspecified; Z68.32 Body mass index [BMI] 32.0-32.9, adult; Z86.16 Personal history of COVID-19; Z87.891 Personal history of nicotine dependence; Z79.899 Other long term (current) drug therapy; Z82.49 Family history of ischemic heart disease and other diseases of the circulatory system
CPT/HCPCS: 96360; 99285; 36415; 93005; 93306; 85379; 83880; 80053 ×2; 80048; 80061; 84443 ×2; 83690; 83735 ×2; 84484 ×2; 85025 ×2; 85610; 85730; 83036; 71046; G0378 ×4